=== PATIENT | male | born 1940 | race Caucasian/White ===

== ENCOUNTER 2018-11-07 09:33 | Inpatient (IN) ==
[2018-11-07] MEDS ORDERED: TRAMADOL HCL 50 MG TABLET PO STA (09:59)
[2018-11-07] MEDS ORDERED: SODIUM CHLORIDE 0.9% 500 ML IV SCH (10:00)
[2018-11-07 10:15] LABS: Basophils # (auto) 0.01 K/uL (0-0.2); Basophils % (auto) 0.2 %; Eosinophils # (auto) 0.07 K/uL (0-0.5); Eosinophils % (auto) 1.1 %; Hematocrit (blood only) 40.4 % (42-52); Hemoglobin 14.3 g/dL (14.0-18.0); Immature Granulocytes # (auto) 0.01 K/uL (0.00-0.02); Immature Granulocytes % (auto) 0.2 %; Lymphocytes # (auto) 1.79 K/uL (1.2-3.4); Lymphocytes % (auto) 28.5 %; Mean Corpuscular Hemoglobin 30.7 pg (25-34); Mean Corpuscular Hgb Conc 35.4 g/dL (32-36); Mean Corpuscular Volume 86.7 fL (80-100); Mean Platelet Volume 10.9 fL (7.4-10.4); Monocytes # (auto) 0.73 K/uL (0.11-0.59); Monocytes % (auto) 11.6 %; Neutrophils # (auto) 3.67 K/uL (1.4-6.5); Neutrophils % (auto) 58.4 %; Platelet Count 175 K/uL (130-400); RDW Coefficient of Variation 12.6 % (11.5-14.5); RDW Standard Deviation 40.1 fL (36.4-46.3); Red Blood Count 4.66 M/uL (4.7-6.1); White Blood Count 6.28 K/uL (4.8-10.8)
[2018-11-07 10:32] LABS: Alanine Aminotransferase 21 U/L (12-78); Albumin Level 3.6 gm/dl (3.4-5.0); Aspartate Aminotransferase 19 U/L (15-37); BUN Creatinine Ratio 12.3 (10-20); Blood Urea Nitrogen 10 mg/dl (7-18); Calcium 8.8 mg/dl (8.5-10.1); Carbon Dioxide 29 mmol/L (21-32); Chloride 96 mmol/L (98-107); Est GFR (Non-African American) 84.5; Glucose 113 mg/dl (70-99); Potassium 4.1 mmol/L (3.5-5.1); Sodium 130 mmol/L (136-145)
[2018-11-07 10:35] LABS: iSTAT Creatinine 0.9 mg/dl (0.6-1.3); iSTAT Hemoglobin 14.6 g/dl (14.0-18.0); iSTAT Ionized Calcium 1.21 mmol/l (1.12-1.32); iSTAT Potassium 4.2 mEq/L (3.3-5.0)
[2018-11-07 10:42] LABS: Alkaline Phosphatase 64 U/L (45-117); Bilirubin,Total 0.6 mg/dl (0.2-1); Creatine Kinase 101 U/L (39-308); Globulin 3.6 gm/dl (2.5-4.0); Total Protein 7.2 gm/dl (6.4-8.2); Troponin I < 0.015 ng/ml (0-0.045)
[2018-11-07] MEDS ORDERED: IOVERSOL 100ml IV PRN (10:43)
--- NOTE | 2018-11-07 11:00 | CT Scan Report ---
CT SCAN OF THE BRAIN WITHOUT IV CONTRAST CLINICAL HISTORY: Fall. Change in mental status. COMPARISON STUDY: CT of the brain dated 06/10/2018. TECHNIQUE: Unenhanced axial CT scan of the brain is performed from the vertex to the skull base. A do se lowering technique was utilized adhering to the principles of ALARA. FINDINGS: Brain parenchyma: There are age-related involutional changes noting moderate subcortical and periven tricular microangiopathic change. There is no hemorrhage, mass effect, or evidence of acute territori al ischemia by CT criteria. Lyn-white matter differentiation is preserved. No extra-axial fluid flaca ection is seen. Ventricles, sulci, cisterns: Prominent secondary to involutional change. Intracranial vasculature: There is atherosclerotic calcification of the cavernous carotid arteries. Calvarium: The skeletal structures are osteopenic. No depressed calvarial fracture is seen. Sinuses and mastoids: The visualized paranasal sinuses are clear. The mastoid air cells are well pneu matized. Orbits: The bony orbits are grossly intact. There are bilateral ocular lens implants. IMPRESSION: There is no hemorrhage, mass effect, or evidence of acute territorial ischemia by CT lis marie. Electronically signed by: Arnoldo Deng M.D. 11/07/2018 10:59 AM
--- NOTE | 2018-11-07 11:05 | CT Scan Report ---
CERVICAL SPINE CT CT DOSE: 1721.11 mGy.cm HISTORY: Neck pain. Pt c/o multiple falls TECHNIQUE: Multiaxial CT images of the cervical spine were performed and reformatted in the sagittal and coronal plane without the use of contrast. A dose lowering technique was utilized adhering to th e principles of ALARA. COMPARISON: None. FINDINGS: No fractures. No subluxation. Prevertebral soft tissues and the C1-C2 interval are intact. No pneumothorax. The left C3-C4 and right C4-C5 facets are fused. Moderate to severe degenerative dis c disease throughout the majority cervical spine. Straightening of the cervical spine. IMPRESSION: No fractures within the cervical spine. Electronically signed by: Dwight Soto M.D. 11/07/2018 11:03 AM
--- NOTE | 2018-11-07 11:16 | CT Scan Report ---
CT OF THE CHEST WITH IV CONTRAST CLINICAL HISTORY: Chest pain status post trauma COMPARISON STUDY: No previous studies for comparison. TECHNIQUE: Following the IV administration of 95 mL of Optiray-320, CT of the thorax was performed f rom the thoracic inlet to the lung bases. Images are reviewed in the axial, sagittal, and coronal moose corina. IV contrast was administered without complication. A dose lowering technique was utilized adher ing to the principles of ALARA. CT DOSE: FINDINGS: Thyroid: Imaged portions of the thyroid gland are normal in appearance. Thoracic aorta: The ascending thoracic aorta measures 37 mm. Pulmonary vasculature: The pulmonary trunk is normal in caliber. There are no central filling defects identified to suggest pulmonary embolus. Note that this examination was not protocoled for the evalu ation of pulmonary emboli. HEART: There are coronary artery calcifications. The heart is normal in size. There is no significant pericardial effusion. There are postsurgical changes of midline sternotomy. Lungs and pleural spaces: There are no pleural effusions. There is minor basilar atelectasis. There i s no focal pulmonary consolidation. There is no pneumothorax. Mediastinum: There is no evidence for a mediastinal hematoma. There is no pathologic anterior mediast inal adenopathy. There is a lobulated posterior mediastinal paraspinal mass measuring 7 cm transverse ly. This is centered on the T9 level. There is suspected epidural extension with probable spinal jeancarlos l narrowing. MRI is recommended in follow-up. Margie: There is no evidence of pathologic hilar adenopathy Axilla: There is no evidence of pathologic axillary lymphadenopathy Upper abdomen: Partially visualized upper abdominal viscera is within normal limits. Skeletal structures: There is an old T5 compression deformity. There is abnormal trabecular pattern o f the T9 vertebra at the level of the paraspinal mass. IMPRESSION: 1. No evidence of acute intrathoracic injury 2. 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 There is an abnormal trabecular pattern of the T9 vertebra, likely secondary to tumor involvement. There is suspected epidural extens ion with probable spinal canal narrowing. An MRI should be considered in follow-up to evaluate for co rd compression. Electronically signed by: Deonte Guardado M.D. 11/07/2018 11:15 AM
--- NOTE | 2018-11-07 11:20 | CT Scan Report ---
THORACIC SPINE CT CT DOSE: HISTORY: Back pain. pt c/o multiple falls TECHNIQUE: Multiaxial CT images of the thoracic spine were performed and reformatted in the sagittal and coronal plane without the use of contrast. A dose lowering technique was utilized adhering to e principles of ALARA. COMPARISON: None. FINDINGS: Mild superior compression deformities at T4 and T5. These are technically age indeterminate but likely old given the lack of surrounding paravertebral edema. There is patchy sclerosis and part ial bony destruction within the T9 vertebral body which extends into the pedicles. There is a large s urrounding paravertebral soft tissue masses at this level which extends into the neural foramen at T9 -T10 and appears to demonstrate epidural involvement with severe central canal narrowing. This mass m easures up to 2.2 cm in thickness and extends into the left extrapleural space from the T7-T11 levels . This is consistent with a minute neoplastic process and may represent lymphoma or plasmacytoma. No pathologic fracture identified. No subluxation. IMPRESSION: 1. Mild superior endplate compression deformities at T4 and T5 which are technically age indeterminat e but likely old. 2. No definite acute fractures within the thoracic spine. 3. Large paravertebral soft tissue mass which involves and surrounds the T9 vertebral body. This exte nds into the bilateral T9-T10 neural foramen and likely demonstrates epidural involvement with severe central canal narrowing. This also extends into the left paravertebral/extrapleural space from the T 7-T11 levels. This is consistent with a neoplastic process and may represent a lymphoma or plasmacyto ma. Electronically signed by: Dwight Soto M.D. 11/07/2018 11:18 AM
[2018-11-07] MEDS ORDERED: DEXAMETHASONE **PF** INJ 10 MG/ML VIAL IV ONE (11:25)
--- NOTE | 2018-11-07 11:25 | CT Scan Report ---
CT SCAN OF THE ABDOMEN AND PELVIS WITH IV CONTRAST; CT SCAN OF THE LUMBAR SPINE WITHOUT IV CONTRAST CLINICAL HISTORY: Falls. Generalized abdominal pain. COMPARISON STUDY: Abdominal CT dated 07/08/2015. TECHNIQUE: Following the IV administration of 95 cc of Optiray 320, CT scan of the abdomen and pelvi s is performed from the lung bases to the proximal femora. Additionally, unenhanced CT scan of the alexis mbar spine is performed from the lower thoracic spine to the sacrum. Images for both examinations are reviewed in the axial, sagittal, and coronal planes. IV contrast was administered without complicati on. A dose lowering technique was utilized adhering to the principles of ALARA. FINDINGS: Lung bases: The patient is status post midline sternotomy. The heart is enlarged and without pericard ial effusion. The coronary arteries are densely calcified. There is a small hiatal hernia. There is b ibasilar scarring/atelectasis. No airspace consolidation is seen typical for pneumonia. There is no p leural effusion. Abnormal paravertebral and pleural/subpleural soft tissue is partially visualized at both lung bases adjacent to the T9 vertebral body. This measures up to 2 cm in thickness, and encroa ches upon the neural foramina. Epidural extension is not excluded. Liver: The contrast-enhanced liver is normal in size, contour, and attenuation. There is no intrahepa tic biliary ductal dilatation. The hepatic veins and portal veins are patent. Gallbladder: Unremarkable. Spleen: Normal in size and attenuation. Pancreas: Moderately atrophic and grossly unremarkable. Adrenal glands: Unremarkable. Kidneys: The contrast enhanced kidneys demonstrate cortical atrophy and are without hydronephrosis. T he kidneys enhance symmetrically. There is a retroaortic left renal vein. Abdominal vasculature: The abdominal aorta is normal in course and caliber noting moderate atheroscle rotic calcification. Bowel: There is advanced sigmoid diverticulosis without CT evidence of acute diverticulitis. No bowel obstruction is seen. There is moderate colonic fecal retention. The appendix is not identified and reported surgically absent. Peritoneum: There is no intraperitoneal free air or abdominal ascites. Lymphadenopathy: None. Pelvic viscera: The prostate gland is mildly enlarged and heterogeneous. The bladder is normal as vis ualized. There are small fat-containing inguinal hernias. Skeletal structures: The skeletal structures are osteopenic. See below for dedicated discussion of th e lumbar spine. There are healed left-sided rib fractures. No acute fracture is seen. A permeative de structive lesion is partially visualized in the body of T9. No additional Lytic or blastic lesions ar e identified. LUMBAR SPINE: Vertebral body height and alignment are maintained throughout the lumbar spine. There i s straightening of the lumbar lordosis. Anterior and lateral marginal osteophytes are seen throughout . The transverse and spinous processes are intact. There is no evidence of spondylolysis. There is ad vanced disc space narrowing with associated endplate sclerosis at L3-L4 and L4-L5. Advanced disc spac e narrowing is also seen at L2-L3. Moderate narrowing is present at L1-L2. There are posterior disc o steophyte complexes at all lumbar levels. There is no evidence of large disc herniation or high-grade central canal stenosis. The paraspinous soft tissues are within normal limits noting fatty atrophy o f the paraspinous musculature. IMPRESSION: 1. There is no evidence of solid organ injury in the hands or pelvis. 2. There is no evidence of fracture or malalignment involving the lumbar spine. 3. There is a permeative destructive lesion partially visualized involving the T9 vertebral body with associated abnormal paravertebral and pleural/subpleural soft tissue. This should be considered neop lasm until proven otherwise, possibly representing lymphoma or plasmacytoma. See report of CT scan of the thoracic spine performed concurrently for detailed thoracic spinal findings. 4. No additional destructive bony lesions are clearly identified. 5. Advanced sigmoid diverticulosis without CT evidence of acute diverticulitis. 6. Additional findings as above. Electronically signed by: Arnoldo Deng M.D. 11/07/2018 11:24 AM
[2018-11-07 11:46] LABS: Prostate Specific Antigen 2.12 ng/ml (0-4)
[2018-11-07 12:02] LABS: Appearance Urine Clear (Clear); Bacteria Urine Automated Negative (Negative); Bilirubin Urine Negative (Negative); Blood Urine 1+ (Negative); Color Urine Yellow; Epithelial Cell Urine Auto 0-5 /lpf (0-5); Glucose Urine UA Negative (Negative); Ketones Urine Negative (Negative); Leukocyte Esterase Urine Negative (Negative); Nitrite Urine Negative (Negative); Protein Urine Negative (Negative); Specific Gravity Urine 1.033 (1.000-1.030); Urobilinogen Urine Negative (Negative); WBC Urine Automated 0 /hpf (0-5)
--- NOTE | 2018-11-07 13:21 | History & Physical Report ---
Date of Service November 07, 2018 Assessment & Plan (1) Vertebral compression fracture: Admit to inpatient at PCU telemetry Vital signs every 4 hours Pain management Follow CBC CMP BMP Consult heme/ONC for lesion at T9 and paravertebral and epidural mass DVT prophylaxis Lovenox 40 mg subcu daily Full code Present on Admission?: Yes (2) Congestive heart failure: Patient has elevated BNP of 497 and some fatigue pitting edema of bilateral lower extremities. Started on gentle dose of Lasix 10 mg IV daily MRI findings of the thoracal spine significant for lytic bony destructive mass involving the T9 vertebral body. Large paravertebral and epidural component of the mass as above results in severe central canal stenosis with severe bilateral foraminal narrowing T8 and T9 and T9 and T10. Primary differential consideration is plasmacytoma with lymphoma. Patient also has 25% anterior endplate compression deformity at L5 appears to be subacute or chronic with chronic T4 compression deformity. Biopsy of the lesion is definitely needed. Will discuss with hematology oncology further options of diagnosis and treatment. Replenish potassium as needed Monitor electrolytes Monitor in and out And daily weight Present on Admission?: Yes (3) Paraspinal mass: As above Present on Admission?: Yes (4) Bradycardia: Patient has bradycardia to 40s with a nonspecific intraventricular conduction block. 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 Consulted cardiology Echocardiogram pending Present on Admission?: Yes History of Present Illness Chief Complaint: Pleurisy Primary Care Provider: Enrique Abdalla plateletsPatient is a 77 years old male with past medical history of coronary artery disease, sinusitis, hypertension, CABG, history of MIs presents to the emergency room with a complaint of back pain that is radiating to his abdomen and it is located mostly under bilateral ribs. She reports weight loss of approximately 25 pounds in 1 year. Patient said it was not intentional and it was related to decreased appetite. Patient increasingly feels more weakness all over his body and reports frequent falls. Patient said he had frequent falls in the past several weeks he did not hit his head no he lost consciousness. Patient said that his lower extremities are swelling up in the past several days and he does not know why. He is taking all of his medicine as prescribed. 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 Patient said in 2008 he had a last CA (lasted of 3) and at that time he was reporting abdominal pain and subsequently had surgery done in which per patient was not found any cause. His first CA happened in 1992. Labs are reviewed: White blood cell 6.28, hemoglobin 14.3 hematocrit 40.4, platelets 175. Sodium 130, potassium 4.1, chloride 96, anion gap 5, creatinine 0.81, GFR 84.5, AST 19, ALT 21, alkaline phosphatase 64, troponin 0 0.015, BNP 497, Albumin 3.6, PSA 2.12, free PSA 0.45., Urine 1+ blood 10-30 red blood cells HEAD: No headache, dizziness, or head injury. For nitrates, negative for leukocyte esterase negative for viable cells. CT abdomen and pelvis no evidence of solid organ injury. No evidence of fracture or malalignment involving the lumbar spine. There is a permeative obstructive lesion partially visualized involving T9 vertebral body with associated abnormal paravertebral and pleural/subpleural soft tissue. This should be considered neoplasm until proven otherwise. Possibly representing lymphoma or plasmacytoma. No additional obstructive bony lesion are clearly identified. Advanced sigmoid diverticulosis without CT evidence of acute diverticulitis. Kidneys the contrast enhanced kidneys demonstrate cortical atrophy and are without hydronephrosis. The kidneys enhance symmetrically. There is a retroaortic left renal vein. Thoracic CT spine: Mild. Endplate compressive deformity at T4 and T5 which technically age indeterminant but likely old. No definite acute fracture within the thoracic spine. Large paravertebral soft tissue mass which involved and surrounds 3 9 vertebral body. This extends into the bilateral T9 and T10 neural foramen and likely demonstrate epidural involvement with severe central canal narrowing. This also extends into the left paravertebral extrapleural space from T7-T11 level. This is consistent with a neoplastic process and may represent lymphoma or plasmacytoma. Lumbar CT -see abdomen pelvis. Head CT there is no hemorrhage, mass affect or evidence of acute territorial ischemia by CT criteria. Chest CT: No evidence of acute intrathoracic injury. Bilateral posterior pars spinal mass centered on the T9 vertebra. There is an normal trabecular pattern of the T9 vertebra, likely due to tumor involvement. There is suspected epidural extension with probably spinal canal narrowing. MRI should be considered in follow-up to evaluate further cord compression. Allergies Allergy/AdvReac Type Severity Reaction Status Date / Time bee venom protein (honey bee) Allergy Intermediate SWELLING Unverified 11/07/18 10:42 Home Medications Home Medications Medication Instructions Recorded Confirmed Type aspirin 81 mg PO QPM 06/10/18 11/07/18 History cholecalciferol (vitamin D3) 1,000 unit PO QAM 06/10/18 11/07/18 History [Vitamin D3] clopidogrel 75 mg PO QAM 06/10/18 11/07/18 History cyanocobalamin (vitamin B-12) 500 mcg PO QAM 06/10/18 11/07/18 History [Vitamin B-12] donepezil 5 mg PO QAM 06/10/18 11/07/18 History levothyroxine 25 mcg PO QAM 06/10/18 11/07/18 History multivitamin 1 tab PO QAM 06/10/18 11/07/18 History omega 6-rfa-[id number]-fish oil [Fish Oil] 1 cap PO QAM 06/10/18 11/07/18 History rosuvastatin 10 mg PO QPM 06/10/18 11/07/18 History Past Med/Surg History Medical History Heart disease (Chronic) Dehydration (Acute) Orthostatic hypotension (Acute) Sinusitis (Acute) Surgical History Hx of appendectomy (Resolved) Family History Other Family history non-contributory Social History Preferred Language: Belarusian Communication Ability: Effective Director Transportation Required: No Beliefs That Will Affect Care: None marital status: Current Living Situation: Spouse current occupational status: retired Other Information That Helps Us Care for You: No Feels Safe at Home: Yes Safety Concerns: Feels Safe At This Time Smoking Status: Former smoker Do You Dip or Chew Tobacco: No ; Second Hand Exposure: No ; Tobacco Cessation Education Requested by Patient: No Hx Alcohol Use: No Hx Substance Use: No Review of Systems Review of Systems: All systems reviewed & are unremarkable except as noted in HPI & below Physical Exam Constitutional: WD/WN, vitals as above well developed, + ill appearing and + frail appearing Eyes: PERRL, conjunctivae normal, anicteric sclerae ENMT: external ear and nose normal, oropharynx normal Neck: trachea midline, no thyromegaly Respiratory: normal respiratory effort, lungs clear to auscultation Cardiovascular: Heart Sounds: normal S1 and normal S2 Palpation: normal PMI and + palpable S3 Vessels: + JVD Lower extremity bilateral 2+ pitting edema up to ankles Chest (Breasts): Additional Comments: Sternal scar from CABG Gastrointestinal (Abdomen): normal bowel sounds, soft, nontender, no hepatosplenomegaly Musculoskeletal: no cyanosis or clubbing, extremities motor strength 5/5 Skin: no rashes, warm and dry Neurologic: patellar DTR's 2+ bilat, sensation intact Psychiatric: A+Ox3, euthymic affect Genitourinary: no testicular masses, no penis abnormality Lymphatic: no cervical or axillary lymphadenopathy Results & Data Vital Signs (Past 12 Hours) Vital Signs Temp Pulse Pulse Resp BP BP Pulse Ox 11/07/18 12:40 52 L 12 97 11/07/18 12:30 58 L 23 160/76 H 95 11/07/18 12:20 53 L 15 96 11/07/18 12:10 55 L 18 97 11/07/18 12:00 65 17 166/84 H 96 11/07/18 11:52 65 14 96 11/07/18 11:50 67 23 192/91 H 95 11/07/18 11:49 71 21 200/96 H 95 11/07/18 11:40 65 16 11/07/18 11:30 61 14 11/07/18 11:20 64 18 11/07/18 11:10 65 7 L 11/07/18 11:00 66 18 11/07/18 10:56 75 21 11/07/18 10:30 48 L 17 96 11/07/18 10:22 50 L 16 96 11/07/18 10:18 50 L 14 146/74 H 97 11/07/18 10:17 53 L 16 146/74 H 96 11/07/18 10:16 96 11/07/18 09:41 36.6 C 64 20 138/83 98 Code Status & VTE Plan Code Status Full code VTE Prophylaxis Plan VTE Prophylaxis will be ordered: Yes PG Care Time/CCT Total # of Minutes Spent Total Time Spent with Patient: Total time spent is greater than 50% in coordination of care (as documented) at patient's floor/unit and/or counseling patient:
[2018-11-07] MEDS ORDERED: ZOLPIDEM TARTRATE 5 MG TAB PO PRN (15:30)
[2018-11-07] MEDS ORDERED: ALUMINUM/MAGNESIUM SUSP 30 ML UDC PO PRN (15:30)
[2018-11-07] MEDS ORDERED: MAGNESIUM HYDROXIDE SUSP 30 ML UDC PO PRN (15:30)
--- NOTE | 2018-11-07 16:32 | Emergency Department Note ---
Entered by Santino Mitchell acting as a scribe for Levy Hodges MD History of Present Illness General Chief complaint: Fall Stated complaint: SPASMS IN LEG AND BACK,PAIN IN RIB AREA,FALLS Time Seen by Provider: 11/07/18 09:45 Source: patient and family () History of Present Illness Onset (ago): week(s) 2 Location: right (flank) Pain Consistency: + constant Maximum Pain Intensity: 0 Exacerbated By: + movement Associated symptoms: + other (+abdominal pain; +intermittent back spasms; +feet swelling ) Treatments prior to arrival: other (Tylenol at 0800 (2) ) The patient is a 77 year old male who presents to the Emergency Room with complaints of constant right flank pain over the past two weeks. The patient notes he fell back in June which resulted in a right rib fracture. The patient notes he has had issues with his right flank ever since. The patient states he also fell a few times since June, with the latest fall episode being two weeks ago. The patient notes he tripped over a stone onto grass two weeks ago, but the patient notes nothing bothered him after the fall initially. However, the patient notes his right flank has worsened since. The of the patient notes the patient has had abdominal pain since the latest fall. She states they went to an acute care clinic, but the notes the doctor at the clinic told them there is nothing more to do except wait for the ribs to heal. The patient states he currently has pain with movement and when trying to get up or sit down. The patient notes he has been having trouble getting around. The patient also notes he has been experiencing intermittent back spasms. The of the patient notes the patient's feet have been swelling, but the patient notes he has been drinking a lot of water recently. The patient notes he took 2 Tylenol at 0800. The patient reports he has been on Plavix. Home Medications Home Medications Medication Instructions Recorded Confirmed Type aspirin 81 mg PO QPM 06/10/18 11/07/18 History cholecalciferol (vitamin D3) 1,000 unit PO QAM 06/10/18 11/07/18 History [Vitamin D3] clopidogrel 75 mg PO QAM 06/10/18 11/07/18 History cyanocobalamin (vitamin B-12) 500 mcg PO QAM 06/10/18 11/07/18 History [Vitamin B-12] donepezil 5 mg PO QAM 06/10/18 11/07/18 History levothyroxine 25 mcg PO QAM 06/10/18 11/07/18 History multivitamin 1 tab PO QAM 06/10/18 11/07/18 History omega 2-sfx-zxq-fish oil [Fish Oil] 1 cap PO QAM 06/10/18 11/07/18 History rosuvastatin 10 mg PO QPM 06/10/18 11/07/18 History Allergies Allergy/AdvReac Type Severity Reaction Status Date / Time bee venom protein (honey bee) Allergy Intermediate SWELLING Unverified 11/07/18 10:42 Past Med/Surg History Medical History Heart disease (Chronic) Dehydration (Acute) Orthostatic hypotension (Acute) Sinusitis (Acute) Surgical History Hx of appendectomy (Resolved) Family History Other Family history non-contributory Social History Preferred Language: Occitan Communication Ability: Effective 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 and A total of 10 systems reviewed and were otherwise negative Physical Exam Vital Signs Vital Signs - 24 hr 11/07/18 09:41 11/07/18 10:16 11/07/18 10:17 Temperature 36.6 C Temperature Source Oral Sepsis Recent Fever Within 48 Hours No Sepsis Action Taken by Nursing No Action Required Pulse Rate 64 Pulse Rate [Finger] 53 L Pulse Rate from SpO2 Sensor Respiratory Rate 20 16 Respiratory Effort / Characteristics Non-Labored Non-Labored Respiratory Depth Normal Normal Blood Pressure 138/83 Blood Pressure [Right Arm] 146/74 H Blood Pressure Mean 101 Blood Pressure Mean [Right Arm] 98 Pulse Oximetry 98 96 96 Oxygen Delivery Method Room Air Room Air Room Air 11/07/18 10:18 11/07/18 10:22 11/07/18 10:30 Temperature Temperature Source Sepsis Recent Fever Within 48 Hours Sepsis Action Taken by Nursing Pulse Rate 50 L 50 L 48 L Pulse Rate [Finger] Pulse Rate from SpO2 Sensor 50 L 50 L 51 L Respiratory Rate 14 16 17 Respiratory Effort / Characteristics Respiratory Depth Blood Pressure 146/74 H Blood Pressure [Right Arm] Blood Pressure Mean 98 Blood Pressure Mean [Right Arm] Pulse Oximetry 97 96 96 Oxygen Delivery Method 11/07/18 10:56 11/07/18 11:00 11/07/18 11:10 Temperature Temperature Source Sepsis Recent Fever Within 48 Hours Sepsis Action Taken by Nursing Pulse Rate 75 66 65 Pulse Rate [Finger] Pulse Rate from SpO2 Sensor Respiratory Rate 21 18 7 L Respiratory Effort / Characteristics Respiratory Depth Blood Pressure Blood Pressure [Right Arm] Blood Pressure Mean Blood Pressure Mean [Right Arm] Pulse Oximetry Oxygen Delivery Method 11/07/18 11:20 11/07/18 11:30 11/07/18 11:40 Temperature Temperature Source Sepsis Recent Fever Within 48 Hours Sepsis Action Taken by Nursing Pulse Rate 64 61 65 Pulse Rate [Finger] Pulse Rate from SpO2 Sensor Respiratory Rate 18 14 16 Respiratory Effort / Characteristics Respiratory Depth Blood Pressure Blood Pressure [Right Arm] Blood Pressure Mean Blood Pressure Mean [Right Arm] Pulse Oximetry Oxygen Delivery Method 11/07/18 11:49 11/07/18 11:50 11/07/18 11:52 Temperature Temperature Source Sepsis Recent Fever Within 48 Hours Sepsis Action Taken by Nursing Pulse Rate 71 67 65 Pulse Rate [Finger] Pulse Rate from SpO2 Sensor 67 68 65 Respiratory Rate 21 23 14 Respiratory Effort / Characteristics Respiratory Depth Blood Pressure 200/96 H 192/91 H Blood Pressure [Right Arm] Blood Pressure Mean 130 124 Blood Pressure Mean [Right Arm] Pulse Oximetry 95 95 96 Oxygen Delivery Method 11/07/18 12:00 11/07/18 12:10 11/07/18 12:20 Temperature Temperature Source Sepsis Recent Fever Within 48 Hours Sepsis Action Taken by Nursing Pulse Rate 65 55 L 53 L Pulse Rate [Finger] Pulse Rate from SpO2 Sensor 64 55 L 54 L Respiratory Rate 17 18 15 Respiratory Effort / Characteristics Respiratory Depth Blood Pressure 166/84 H Blood Pressure [Right Arm] Blood Pressure Mean 111 Blood Pressure Mean [Right Arm] Pulse Oximetry 96 97 96 Oxygen Delivery Method 11/07/18 12:30 11/07/18 12:40 Temperature Temperature Source Sepsis Recent Fever Within 48 Hours Sepsis Action Taken by Nursing Pulse Rate 58 L 52 L Pulse Rate [Finger] Pulse Rate from SpO2 Sensor 55 L 52 L Respiratory Rate 23 12 Respiratory Effort / Characteristics Respiratory Depth Blood Pressure 160/76 H Blood Pressure [Right Arm] Blood Pressure Mean 104 Blood Pressure Mean [Right Arm] Pulse Oximetry 95 97 Oxygen Delivery Method GENERAL: Awake, alert, appears mildly confused, unable to verbalize thoughts HENT: Normocephalic, atraumatic. Oropharynx unremarkable. EYES: Normal conjunctiva. Sclera non-icteric. NECK: Supple. No nuchal rigidity. FROM. No JVD. RESPIRATORY: Clear to auscultation. CARDIAC: Regular rate, normal rhythm. Extremities warm and well perfused. Pulses equal. ABDOMEN: Soft, tender bilaterally to RUQ and LUQ. No tenderness to palpation. No rebound or guarding. No masses. RECTAL: Deferred. MUSCULOSKELETAL: Chest examination reveals no tenderness. The back is symmetrical on inspection without obvious abnormality. There is no CVA tenderness to palpation. No joint edema. Experiencing spasms on exam. LOWER EXTREMITIES: Calves are equal size bilaterally and non-tender. No edema. No discoloration. NEURO: Normal sensorium. No sensory or motor deficits noted. SKIN: No rash or jaundice noted. Course 0947: Past medical records reviewed. The patient was evaluated in room B4B. A complete history and physical exam was performed. 1133: I reviewed the patient's [facility]. Dr. Eckert will evaluate the patient for further management. Consultations Consultation #1: I reviewed the patient's case [facility]. Dr. Eckert will evaluate the patient for further management. Time: 11:33 Administered Medications Discontinued Medications Dexamethasone Sodium Phosphate (Decadron Pf) 10 mg IV NOW ONE Stop: 11/07/18 11:26 Last Admin: 11/07/18 12:21 Dose: 10 mg Documented by: [id number] Sodium Chloride (Nss) 500 mls @ 999 mls/hr IV .Q31M HILARY Stop: 11/07/18 10:30 Last Infusion: 11/07/18 10:44 Dose: 0 mls/hr Documented by: [id number] Admin: 11/07/18 10:10 Dose: 999 mls/hr Documented by: [id number] Ioversol (Optiray 320 100ml) 95 ml IV ONCE PRN PRN Reason: Interaction Checking Stop: 11/11/18 10:42 Last Admin: 11/07/18 10:43 Dose: 95 ml Documented by: [id number] Tramadol HCl (Ultram) 50 mg PO NOW STA Stop: 11/07/18 10:00 Last Admin: 11/07/18 10:10 Dose: 50 mg Documented by: [id number] Medical Decision Making Differential Diagnosis Differential diagnosis: Etiologies such as fracture, dislocation, intra-abdominal, pneumothorax, intrathoracic , intracranial, neurologic, as well as other traumatic pathologies were entertained. Medical Records Attestation: I reviewed the patient's medical records. Home Medications Current Medication List: was personally reviewed by me Laboratory Data Attestation: I reviewed the patient's lab results. Result diagrams: 11/07/18 10:06 11/07/18 10:06 Lab Results 11/07/18 11/07/18 11/07/18 Range/Units 10:06 10:06 10:06 WBC 6.28 (4.8-10.8) K/uL RBC 4.66 L (4.7-6.1) M/uL Hgb 14.3 (14.0-18.0) g/dL POC Hgb (14.0-18.0) g/dl Hct 40.4 L (42-52) % POC Hct (42-52) % MCV 86.7 (80-100) fL MCH 30.7 (25-34) pg MCHC 35.4 (32-36) g/dL RDW Std Deviation 40.1 (36.4-46.3) fL RDW Coeff of Christiane 12.6 (11.5-14.5) % Plt Count 175 (130-400) K/uL MPV 10.9 H (7.4-10.4) fL Immature Gran % (Auto) 0.2 % Neut % (Auto) 58.4 % Lymph % (Auto) 28.5 % [place] % (Auto) 11.6 % Eos % (Auto) 1.1 % Baso % (Auto) 0.2 % Immature Gran # (Auto) 0.01 (0.00-0.02) K/uL Neut # (Auto) 3.67 (1.4-6.5) K/uL Lymph # (Auto) 1.79 (1.2-3.4) K/uL [place] # (Auto) 0.73 H (0.11-0.59) K/uL Eos # (Auto) 0.07 (0-0.5) K/uL Baso # (Auto) 0.01 (0-0.2) K/uL POC Sodium (135-144) mEq/L Sodium 130 L (136-145) mmol/L POC Potassium (3.3-5.0) mEq/L Potassium 4.1 (3.5-5.1) mmol/L POC Chloride (101-112) mEq/L Chloride 96 L (98-107) mmol/L Carbon Dioxide 29 (21-32) mmol/L POC Total CO2 (24-31) mEq/l Anion Gap 5.0 (3-11) POC Anion Gap (16-25) mmol/L POC BUN (7-18) mg/dl BUN 10 (7-18) mg/dl Creatinine 0.81 (0.6-1.4) mg/dl POC Creatinine (0.6-1.3) mg/dl Est Cr Clr Drug Dosing Not Reportable Est GFR ( Amer) 98.0 Est GFR (Non-Af Amer) 84.5 BUN/Creatinine Ratio 12.3 (10-20) Glucose 113 H (70-99) mg/dl POC Glucose (other) (70-99) mg/dl Calcium 8.8 (8.5-10.1) mg/dl POC Ioniz Calcium Mike (1.12-1.32) mmol/l Total Bilirubin 0.6 (0.2-1) mg/dl AST 19 (15-37) U/L ALT 21 (12-78) U/L Alkaline Phosphatase 64 (45-117) U/L Total Creatine Kinase 101 (39-308) U/L Troponin I < 0.015 (0-0.045) ng/ml NT-Pro-B Natriuret Pep 497 (0-1800) pg/ml Total Protein 7.2 (6.4-8.2) gm/dl Albumin 3.6 (3.4-5.0) gm/dl Globulin 3.6 (2.5-4.0) gm/dl Albumin/Globulin Ratio 1.0 (0.9-2) Prostate Specific Ag (0-4) ng/ml Free PSA ng/ml % Free PSA % TSH 2.920 (0.300-4.500) uIu/ml Urine Color Urine Appearance (Clear) Urine pH (4.5-7.5) Ur Specific [place] (1.000-1.030) Urine Protein (Negative) Urine Glucose (UA) (Negative) Urine Ketones (Negative) Urine Blood (Negative) Urine Nitrite (Negative) Urine Bilirubin (Negative) Urine Urobilinogen (Negative) Ur Leukocyte Esterase (Negative) Urine WBC (Auto) (0-5) /hpf Urine RBC (Auto) (0-4) /hpf U Hyaline Cast (Auto) (0-5) /lpf U Epithel Cells (Auto) (0-5) /lpf Urine Bacteria (Auto) (Negative) 11/07/18 11/07/18 11/07/18 Range/Units 10:06 10:09 11:35 WBC (4.8-10.8) K/uL RBC (4.7-6.1) M/uL Hgb (14.0-18.0) g/dL POC Hgb 14.6 (14.0-18.0) g/dl Hct (42-52) % POC Hct 43 (42-52) % MCV (80-100) fL MCH (25-34) pg MCHC (32-36) g/dL RDW Std Deviation (36.4-46.3) fL RDW Coeff of Christiane (11.5-14.5) % Plt Count (130-400) K/uL MPV (7.4-10.4) fL Immature Gran % (Auto) % Neut % (Auto) % Lymph % (Auto) % [place] % (Auto) % Eos % (Auto) % Baso % (Auto) % Immature Gran # (Auto) (0.00-0.02) K/uL Neut # (Auto) (1.4-6.5) K/uL Lymph # (Auto) (1.2-3.4) K/uL [place] # (Auto) (0.11-0.59) K/uL Eos # (Auto) (0-0.5) K/uL Baso # (Auto) (0-0.2) K/uL POC Sodium 129 L (135-144) mEq/L Sodium (136-145) mmol/L POC Potassium 4.2 (3.3-5.0) mEq/L Potassium (3.5-5.1) mmol/L POC Chloride 92 L (101-112) mEq/L Chloride (98-107) mmol/L Carbon Dioxide (21-32) mmol/L POC Total CO2 25 (24-31) mEq/l Anion Gap (3-11) POC Anion Gap 17.0 (16-25) mmol/L POC BUN 9 (7-18) mg/dl BUN (7-18) mg/dl Creatinine (0.6-1.4) mg/dl POC Creatinine 0.9 (0.6-1.3) mg/dl Est Cr Clr Drug Dosing Est GFR ( Amer) Est GFR (Non-Af Amer) BUN/Creatinine Ratio (10-20) Glucose (70-99) mg/dl POC Glucose (other) 115 H (70-99) mg/dl Calcium (8.5-10.1) mg/dl POC Ioniz Calcium Mike 1.21 (1.12-1.32) mmol/l Total Bilirubin (0.2-1) mg/dl AST (15-37) U/L ALT (12-78) U/L Alkaline Phosphatase (45-117) U/L Total Creatine Kinase (39-308) U/L Troponin I (0-0.045) ng/ml NT-Pro-B Natriuret Pep (0-1800) pg/ml Total Protein (6.4-8.2) gm/dl Albumin (3.4-5.0) gm/dl Globulin (2.5-4.0) gm/dl Albumin/Globulin Ratio (0.9-2) Prostate Specific Ag 2.120 (0-4) ng/ml Free PSA 0.45 ng/ml % Free PSA % TSH (0.300-4.500) uIu/ml Urine Color Yellow Urine Appearance Clear (Clear) Urine pH 8.0 H (4.5-7.5) Ur Specific [place] 1.033 H (1.000-1.030) Urine Protein Negative (Negative) Urine Glucose (UA) Negative (Negative) Urine Ketones Negative (Negative) Urine Blood 1+ H (Negative) Urine Nitrite Negative (Negative) Urine Bilirubin Negative (Negative) Urine Urobilinogen Negative (Negative) Ur Leukocyte Esterase Negative (Negative) Urine WBC (Auto) 0 (0-5) /hpf Urine RBC (Auto) 10-30 H (0-4) /hpf U Hyaline Cast (Auto) 1-5 (0-5) /lpf U Epithel Cells (Auto) 0-5 (0-5) /lpf Urine Bacteria (Auto) Negative (Negative) Imaging Data Radiologist's Impression: Radiology results as stated below per my review and the radiologist's interpretation: CT SCAN OF THE ABDOMEN AND PELVIS WITH IV CONTRAST; CT SCAN OF THE LUMBAR SPINE WITHOUT IV CONTRAST CLINICAL HISTORY: Falls. Generalized abdominal pain. COMPARISON STUDY: Abdominal CT dated 07/08/2015. TECHNIQUE: Following the IV administration of 95 cc of Optiray 320, CT scan of the abdomen and pelvis is performed from the lung bases to the proximal femora. Additionally, unenhanced CT scan of the lumbar spine is performed from the lower thoracic spine to the sacrum. Images for both examinations are reviewed in the axial, sagittal, and coronal planes. IV contrast was administered without complication. A dose lowering technique was utilized adhering to the principles of ALARA. FINDINGS: Lung bases: The patient is status post midline sternotomy. The heart is enlarged and without pericardial effusion. The coronary arteries are densely calcified. There is a small hiatal hernia. There is bibasilar scarring/atelectasis. No airspace consolidation is seen typical for pneumonia. There is no pleural effusion. Abnormal paravertebral and pleural/subpleural soft tissue is partially visualized at both lung bases adjacent to the T9 vertebral body. This measures up to 2 cm in thickness, and encroaches upon the neural foramina. Epidural extension is not excluded. Liver: The contrast-enhanced liver is normal in size, contour, and attenuation. There is no intrahepatic biliary ductal dilatation. The hepatic veins and portal veins are patent. Gallbladder: Unremarkable. Spleen: Normal in size and attenuation. Pancreas: Moderately atrophic and grossly unremarkable. Adrenal glands: Unremarkable. Kidneys: The contrast enhanced kidneys demonstrate cortical atrophy and are without hydronephrosis. The kidneys enhance symmetrically. There is a retroao rtic left renal vein. Abdominal vasculature: The abdominal aorta is normal in course and caliber no ting moderate atherosclerotic calcification. Bowel: There is advanced sigmoid diverticulosis without CT evidence of acute diverticulitis. No bowel obstruction is seen. There is moderate colonic fecal retention. The appendix is not identified and reported surgically absent. Peritoneum: There is no intraperitoneal free air or abdominal ascites. Lymphadenopathy: None. Pelvic viscera: The prostate gland is mildly enlarged and heterogeneous. The bladder is normal as visualized. There are small fat-containing inguinal hernias. Skeletal structures: The skeletal structures are osteopenic. See below for dedicated discussion of the lumbar spine. There are healed left-sided rib fractures. No acute fracture is seen. A permeative destructive lesion is partially visualized in the body of T9. No additional Lytic or blastic lesions are identified. LUMBAR SPINE: Vertebral body height and alignment are maintained throughout the lumbar spine. There is straightening of the lumbar lordosis. Anterior and lateral marginal osteophytes are seen throughout. The transverse and spinous processes are intact. There is no evidence of spondylolysis. There is advanced disc space narrowing with associated endplate sclerosis at L3-L4 and L4-L5. Advanced disc space narrowing is also seen at L2-L3. Moderate narrowing is present at L1-L2. There are posterior disc osteophyte complexes at all lumbar levels. There is no evidence of large disc herniation or high-grade central canal stenosis. The paraspinous soft tissues are within normal limits noting fatty atrophy of the paraspinous musculature. IMPRESSION: 1. There is no evidence of solid organ injury in the hands or pelvis. 2. There is no evidence of fracture or malalignment involving the lumbar spine. 3. There is a permeative destructive lesion partially visualized involving the T9 vertebral body with associated abnormal paravertebral and pleural/subpleural soft tissue. This should be considered neoplasm until proven otherwise, possibly representing lymphoma or plasmacytoma. See report of CT scan of the thoracic spine performed concurrently for detailed thoracic spinal findings. 4. No additional destructive bony lesions are clearly identified. 5. Advanced sigmoid diverticulosis without CT evidence of acute diverticulitis. 6. Additional findings as above. Electronically signed by: Arnoldo Deng M.D. 11/07/2018 11:[address] OF THE CHEST WITH IV CONTRAST CLINICAL HISTORY: Chest pain status post trauma COMPARISON STUDY: No previous studies for comparison. TECHNIQUE: Following the IV administration of 95 mL of Optiray-320, CT of the thorax was performed from the thoracic inlet to the lung bases. Images are reviewed in the axial, sagittal, and coronal planes. IV contrast was admin istered without complication. A dose lowering technique was utilized adhering to the principles of ALARA. CT DOSE: FINDINGS: Thyroid: Imaged portions of the thyroid gland are normal in appearance. Thoracic aorta: The ascending thoracic aorta measures 37 mm. Pulmonary vasculature: The pulmonary trunk is normal in caliber. There are no central filling defects identified to suggest pulmonary embolus. Note that this examination was not protocoled for the evaluation of pulmonary emboli. HEART: There are coronary artery calcifications. The heart is normal in size. There is no significant pericardial effusion. There are postsurgical changes of midline sternotomy. Lungs and pleural spaces: There are no pleural effusions. There is minor basilar atelectasis. There is no focal pulmonary consolidation. There is no pneumothorax. Mediastinum: There is no evidence for a mediastinal hematoma. There is no pathologic anterior mediastinal adenopathy. There is a lobulated posterior mediastinal paraspinal mass measuring 7 cm transversely. This is centered on the T9 level. There is suspected epidural extension with probable spinal canal narrowing. MRI is recommended in follow-up. Margie: There is no evidence of pathologic hilar adenopathy Axilla: There is no evidence of pathologic axillary lymphadenopathy Upper abdomen: Partially visualized upper abdominal viscera is within normal limits. Skeletal structures: There is an old T5 compression deformity. There is abnormal trabecular pattern of the T9 vertebra at the level of the paraspinal mass. IMPRESSION: 1. No evidence of acute intrathoracic injury 2. 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 There is an abnormal trabecular pattern of the T9 vertebra, likely secondary to tumor involvement. There is suspected epidural extension with probable spinal canal narrowing. An MRI should be considered in follow-up to evaluate for cord compression. Electronically signed by: Deonte Guardado M.D. 11/07/2018 11:[address] SCAN OF THE BRAIN WITHOUT IV CONTRAST CLINICAL HISTORY: Fall. Change in mental status. COMPARISON STUDY: CT of the brain dated 06/10/2018. TECHNIQUE: Unenhanced axial CT scan of the brain is performed from the vertex to the skull base. A dose lowering technique was utilized adhering to the principles of ALARA. FINDINGS: Brain parenchyma: There are age-related involutional changes noting moderate subcortical and periventricular microangiopathic change. There is no hemorrhage, mass effect, or evidence of acute territorial ischemia by CT criteria. Lyn- white matter differentiation is preserved. No extra-axial fluid collection is seen. Ventricles, sulci, cisterns: Prominent secondary to involutional change. Intracranial vasculature: There is atherosclerotic calcification of the cavernous carotid arteries. Calvarium: The skeletal structures are osteopenic. No depressed calvarial fracture is seen. Sinuses and mastoids: The visualized paranasal sinuses are clear. The mastoid air cells are well pneumatized. Orbits: The bony orbits are grossly intact. There are bilateral ocular lens implants. IMPRESSION: There is no hemorrhage, mass effect, or evidence of acute territorial ischemia by CT criteria. Electronically signed by: Arnoldo Deng M.D. 11/07/2018 10:[address] DOSE: HISTORY: Back pain. pt c/o multiple falls TECHNIQUE: Multiaxial CT images of the thoracic spine were performed and reformatted in the sagittal and coronal plane without the use of contrast. A dose lowering technique was utilized adhering to the principles of ALARA. COMPARISON: None. FINDINGS: Mild superior compression deformities at T4 and T5. These are technically age indeterminate but likely old given the lack of surrounding paravertebral edema. There is patchy sclerosis and partial bony destruction within the T9 vertebral body which extends into the pedicles. There is a large surrounding paravertebral soft tissue masses at this level which extends into the neural foramen at T9-T10 and appears to demonstrate epidural involvement with severe central canal narrowing. This mass measures up to 2.2 cm in thickness and extends into the left extrapleural space from the T7-T11 levels. This is consistent with a minute neoplastic process and may represent lymphoma or plasmacytoma. No pathologic fracture identified. No subluxation. IMPRESSION: 1. Mild superior endplate compression deformities at T4 and T5 which are technically age indeterminate but likely old. 2. No definite acute fractures within the thoracic spine. 3. Large paravertebral soft tissue mass which involves and surrounds the T9 vertebral body. This extends into the bilateral T9-T10 neural foramen and likely demonstrates epidural involvement with severe central canal narrowing. This also extends into the left paravertebral/extrapleural space from the T7-T11 levels. This is consistent with a neoplastic process and may represent a lymphoma or plasmacytoma. Electronically signed by: Dwight Soto M.D. 11/07/2018 11:[address] DOSE: 1721.11 mGy.cm HISTORY: Neck pain. Pt c/o multiple falls TECHNIQUE: Multiaxial CT images of the cervical spine were performed and reformatted in the sagittal and coronal plane without the use of contrast. A dose lowering technique was utilized adhering to the principles of ALARA. COMPARISON: None. FINDINGS: No fractures. No subluxation. Prevertebral soft tissues and the C1-C2 interval are intact. No pneumothorax. The left C3-C4 and right C4-C5 facets are fused. Moderate to severe degenerative disc disease throughout the majority cervical spine. Straightening of the cervical spine. IMPRESSION: No fractures within the cervical spine. Electronically signed by: Dwight Soto M.D. 11/07/2018 11:03 AM ECG Data Attestation: I personally reviewed and interpreted this ECG as follows: Indication: other (right flank pain ) Rate (beats per minute): 53 Rhythm: sinus bradycardia Findings: + other (intraventricular block, old inferior infarct ) and + 1st degree AV block; no ST depression and no ST elevation Blood Pressure Blood Pressure Findings: Elevated blood pressure Blood Pressure Disposition: further management by hospitalist MDM Narrative This is a 77-year-old male who presents emergency department complaining of bilateral rib pain. Due to the nature of the patient's complaint as well as his recent history he was sent for CAT scan of the head chest abdomen pelvis as well as spine. Patient's spine is concerning for a destructive lesion at the T9 area. Because of this I recommended that the patient be admitted to the hospitalist. I did discuss the case with the hospitalist service who agreed to admit the patient. Patient and family were in agreement with the treatment plan. Patient was also given tramadol for his pain. Patient was in agreement with the treatment plan. Impression & Plan Paraspinal mass, Vertebral compression fracture Discharge Plan Visit Data *Final* Discharge Date/Time: 11/07/18 13:08 Chief Complaint: Fall Stated Complaint: SPASMS IN LEG AND BACK,PAIN IN RIB AREA,FALLS ED Provider: Levy Hodges Problem: Paraspinal mass, Vertebral compression fracture Patient Disposition: Admitted As Inpatient Discharge Instructions Interventions: ED Discharge Assessment Last Done: 11/07/18 13:08 The scribe's documentation has been prepared under my direction and personally reviewed by me in its entirety. I confirm that the note above accurately reflects all work, treatment, procedures, and medical decision making performed by me.
[2018-11-07] MEDS: FUROSEMIDE 10 MG in SYRINGE 0 ML IV SCH (20:08)
[2018-11-07] MEDS: ROSUVASTATIN CALCIUM 10 MG TAB PO SCH (20:09)
--- NOTE | 2018-11-07 20:40 | Magnetic Resonance Report ---
MR thoracic spine wo con HISTORY: 77 years-old Male T9 lesion,jayla fractures t4, t5, t9-t11,t7-t10 acute mid back pain wit h compression deformities and T9 vertebral body mass. COMPARISON: CT the rectal lumbar spine, chest, abdomen and pelvis studies of same day. TECHNIQUE: Multiplanar multisequence MRI of the thoracic spine was obtained without the use of IV con trast. FINDINGS: The imaged posterior fossa structures appear unremarkable. Degenerative changes noted about the image d cervical and lumbar spine. 25% anterior endplate compression deformity of the T5 vertebral body wit h less than 20% superior and anterior endplate compression deformity at T4 are noted. No associated b one marrow edema at T4. There is minimal edema like signal about the superior endplate of T5. There i s mild multilevel disc space narrowing with spondylitic spurring and mostly moderate facet arthrosis throughout the thoracic spine. Posterior disc osteophyte complex formation is noted at T12-L1 which f lattens the ventral thecal sac without significant central canal or foraminal narrowing as seen on th e sagittal images alone. There is a permeative destructive mass with marrow replacement redemonstrated about the T9 vertebral body. There is slight superior endplate compression of less than 20% at this level. Large soft tissue mass surrounds the vertebral body and extends into the paravertebral, anterior, lateral and posterio r dural tissues. Overall this mass measures approximately 6.3 x 7.1 x 11.5 cm in AP, transverse and c ranial caudal dimensions with a mass extending from the T7-T11 levels within the paravertebral/subple ural space. The epidural involvement causes severe central canal stenosis at T8-T9 and T9-T10, AP dim ension of the thecal sac narrowed to 3.5 mm posterior to the T9 level. Severe bilateral foraminal harrison rowing at T8-T9 and T9-T10 with mass extending into the bilateral neuroforamina. No additional suspic ious bone lesions are identified. IMPRESSION: 1. 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 Large paravertebral and epidural component of the mass as above results in severe central canal stenosis with severe brandon ateral foraminal narrowing at T8-T9 and T9-T10. Primary differential consideration is a plasmacytoma with lymphoma also within the differential. 2. No additional suspicious bone lesions are identified. 3. 25% anterior endplate compression deformity at L5 appears to be subacute or chronic with chronic T 4 compression deformity. Correlate with clinical history. 4. No acute fracture or subluxation identified. The above report was generated using voice recognition software. It may contain grammatical, syntax o r spelling errors. Electronically signed by: José Pan M.D. 11/07/2018 8:37 PM
[2018-11-07] MEDS ORDERED: ASPIRIN 81 MG ECTAB PO SCH (21:00)
[2018-11-07] MEDS ORDERED: ENOXAPARIN INJ 40 MG/0.4 ML SYR SQ SCH (22:00)
[2018-11-08] MEDS: LEVOTHYROXINE SODIUM 25 MCG TABLET PO SCH (06:00)
[2018-11-08 07:33] LABS: Hematocrit (blood only) 40.2 % (42-52); Hemoglobin 14.4 g/dL (14.0-18.0); Immature Granulocytes # (auto) 0.03 K/uL (0.00-0.02); Immature Granulocytes % (auto) 0.3 %; Lymphocytes # (auto) 2.09 K/uL (1.2-3.4); Lymphocytes % (auto) 18.2 %; Mean Corpuscular Hgb Conc 35.8 g/dL (32-36); Mean Corpuscular Volume 86.5 fL (80-100); Mean Platelet Volume 10.6 fL (7.4-10.4); Monocytes # (auto) 0.94 K/uL (0.11-0.59); Monocytes % (auto) 8.2 %; Neutrophils # (auto) 8.43 K/uL (1.4-6.5); Neutrophils % (auto) 73.3 %; Platelet Count 188 K/uL (130-400); RDW Coefficient of Variation 12.9 % (11.5-14.5); RDW Standard Deviation 40.9 fL (36.4-46.3); Red Blood Count 4.65 M/uL (4.7-6.1); White Blood Count 11.49 K/uL (4.8-10.8)
[2018-11-08 08:06] LABS: Albumin Level 3.5 gm/dl (3.4-5.0); BUN Creatinine Ratio 14.9 (10-20); Calcium 9.1 mg/dl (8.5-10.1); Creatinine Clr Calc Pharmacy 71.7 ml/min; Est GFR (African American) 94.3; Est GFR (Non-African American) 81.3; Potassium 3.9 mmol/L (3.5-5.1)
[2018-11-08 08:09] LABS: Albumin Globulin Ratio 0.9 (0.9-2); Bilirubin,Total 0.7 mg/dl (0.2-1); Globulin 3.7 gm/dl (2.5-4.0); Total Protein 7.2 gm/dl (6.4-8.2)
--- NOTE | 2018-11-08 08:42 | Cardiology Consultation ---
Date of Consultation November 08, 2018 Assessment & Plan (1) CAD (coronary artery disease): Has reported CABG many years ago and does have a sternotomy scar. Denies any angina but currently is confused. Would recommend continuation of aspirin 81 mg daily. No ischemic evaluation is recommended at this time. Echocardiogram has been ordered by the primary service and is currently pending. Continue statin therapy. Not on beta-socorro as he is having intermittent bradycardic episodes. Continue to follow with his outpatient gas dispatcher in the [place] area. Has infarct pattern on ECG. (2) Hx of CABG: Plan as above. (3) Bradycardia: He does not appear to be symptomatic with his mild bradycardia. Bradycardia may be due to his home donepezil. If he has significant bradycardia would consider discontinuation of that medication but for mild bradycardia, the medication was not discontinued at this time. Would avoid other medications that could further lower his heart rate. (4) Hypertension: Blood pressure is mildly elevated. Will defer treatment to primary service. (5) Accelerated junctional rhythm: Brief episode of accelerated junctional rhythm versus SVT with heart rates near 120 bpm noted on telemetry. It was nonsustained. No specific treatment warranted at this time, especially with intermittent mild bradycardia. (6) Edema: No edema currently on exam. He appears euvolemic. His proBNP is not significantly elevated. He does not likely require long-standing diuretic therapy. It is not clear what his LV systolic function is. It would not be surprising if he had some degree of diastolic or systolic CHF given his documented cardiac history, however he does not appear hypervolemic at this time. Disposition: Cardiology will sign off at this time. Follow-up with his primary gas dispatcher on discharge. Hematology/oncology consultation is pending. Please call with any other questions or concerns. Care discussed with primary hospitalist, Dr. Rock. Thank you for allowing me to participate in the care of your patient. Please call for any other questions or concerns. Sincerely, Ash Ellis M.D. History of Present Illness Reason for Consultation: Bradycardia Requesting Physician: Dr. Eckert Attending Physician: Dawood Rock, DO History of Present Illness Mr. Carias is a very pleasant 77-year-old gentleman with a history significant for dementia, CAD status post CABG (approximately 20 years ago in [place]), multiple myocardial infarctions, and hypertension who was admitted on 11/07/2018 due to reported back pain radiating to his abdomen. Unfortunately, he is a poor historian. He does not recall why he came to the hospital. In fact, he states that he lives at home with his father and states that his father is 75. He appears comfortable and denies any pain during our conversation. He denied any recent chest pain, shortness of breath, syncope, near syncope, palpitations, edema, or bleeding. He states that he follows with Dr. Hill for his cardiology needs, every 6 months. Cardiology consultation was requested due to bradycardia with heart rates in the 40s. He was also felt to have CHF on presentation by the primary service based on pitting edema of his lower extremities. He was given IV Lasix 10 mg. MRI of his thoracic spine was done due to abnormal CT scan. MRI demonstrated lytic bone destructive mass involving the T9 vertebral body, including a large paravertebral and epidural component with severe central canal stenosis and severe bilateral foraminal narrowing at T8-T9 and T9-T10, concerning for malignancy. Hematology/oncology consultation is pending. There is a reported weight loss of approximately 25 pounds in the last year according to the admitting note. His was called via telephone, however there was no answer. Review of systems: As above and otherwise unremarkable or unobtainable due to patient's memory. Past medical history: 1. CAD status post CABG many years ago 2. Multiple myocardial infarctions 3. Hypertension Family history: He denies premature CAD. Social history: He denies smoking. He denies alcohol. He states that he lives at home with his and father, although states that his father is younger than him. He reports 3 children. 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 He was unaccompanied for today's visit. Allergies Allergy/AdvReac Type Severity Reaction Status Date / Time bee venom protein (honey bee) Allergy Intermediate SWELLING Unverified 11/07/18 10:42 Home Medications Home Medications Medication Instructions Recorded Confirmed Type aspirin 81 mg PO QPM 06/10/18 11/07/18 History cholecalciferol (vitamin D3) 1,000 unit PO QAM 06/10/18 11/07/18 History [Vitamin D3] clopidogrel 75 mg PO QAM 06/10/18 11/07/18 History cyanocobalamin (vitamin B-12) 500 mcg PO QAM 06/10/18 11/07/18 History [Vitamin B-12] donepezil 5 mg PO QAM 06/10/18 11/07/18 History levothyroxine 25 mcg PO QAM 06/10/18 11/07/18 History multivitamin 1 tab PO QAM 06/10/18 11/07/18 History omega 1-zyx-drw-fish oil [Fish Oil] 1 cap PO QAM 06/10/18 11/07/18 History rosuvastatin 10 mg PO QPM 06/10/18 11/07/18 History Patient History Medical History Heart disease (Chronic) Dehydration (Acute) Orthostatic hypotension (Acute) Sinusitis (Acute) Surgical History Hx of appendectomy (Resolved) Family History Other Family history non-contributory Social History Preferred Language: Kyrgyz Communication Ability: Effective 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 Alert. He was not oriented to place, month, or year. HEENT: Anicteric sclera. Neck: No JVD. No hepatojugular reflux appreciated. No bruits. Normal carotid upstrokes bilaterally. Cardiac: PMI was nonpalpable. No ventricular heave. Regular with occasional ectopy. Normal S1-S2. 2/6 systolic murmur. No rubs or gallops. Pulmonary: Clear to auscultation bilaterally without wheezes, rales, or rhonchi. Abdomen: Soft, nontender, nondistended, with normoactive bowel sounds. No bruits noted. Extremities: 2+ radial pulses bilaterally. 2+ posterior tibialis pulses bilaterally. No edema or cyanosis. Psychiatric: Affect appears appropriate. Results & Data Vital Signs (Past 12 Hours) Vital Signs Temp Pulse Pulse Resp BP Pulse Ox 11/08/18 06:48 36.7 C 69 19 162/76 H 97 11/08/18 01:26 66 11/07/18 23:21 36.4 C L 82 18 141/69 H 97 Laboratory Results Laboratory Results - last 24 hr 11/07/18 11/07/18 11/07/18 10:06 10:06 10:06 WBC 6.28 RBC 4.66 L Hgb 14.3 POC Hgb Hct 40.4 L POC Hct MCV 86.7 MCH 30.7 MCHC 35.4 RDW Std Deviation 40.1 RDW Coeff of Christiane 12.6 Plt Count 175 MPV 10.9 H Immature Gran % (Auto) 0.2 Neut % (Auto) 58.4 Lymph % (Auto) 28.5 Kent % (Auto) 11.6 Eos % (Auto) 1.1 Baso % (Auto) 0.2 Immature Gran # (Auto) 0.01 Neut # (Auto) 3.67 Lymph # (Auto) 1.79 Kent # (Auto) 0.73 H Eos # (Auto) 0.07 Baso # (Auto) 0.01 POC Sodium Sodium 130 L POC Potassium Potassium 4.1 POC Chloride Chloride 96 L Carbon Dioxide 29 POC Total CO2 Anion Gap 5.0 POC Anion Gap POC BUN BUN 10 Creatinine 0.81 POC Creatinine Est Cr Clr Drug Dosing Not Reportable Est GFR ( Amer) 98.0 Est GFR (Non-Af Amer) 84.5 BUN/Creatinine Ratio 12.3 Glucose 113 H POC Glucose (other) Calcium 8.8 POC Ioniz Calcium Mike Total Bilirubin 0.6 AST 19 ALT 21 Alkaline Phosphatase 64 Total Creatine Kinase 101 Troponin I < 0.015 NT-Pro-B Natriuret Pep 497 Total Protein 7.2 Albumin 3.6 Globulin 3.6 Albumin/Globulin Ratio 1.0 Prostate Specific Ag Free PSA % Free PSA TSH 2.920 Urine Color Urine Appearance Urine pH Ur Specific [place] Urine Protein Urine Glucose (UA) Urine Ketones Urine Blood Urine Nitrite Urine Bilirubin Urine Urobilinogen Ur Leukocyte Esterase Urine WBC (Auto) Urine RBC (Auto) U Hyaline Cast (Auto) U Epithel Cells (Auto) Urine Bacteria (Auto) 11/07/18 11/07/18 11/07/18 10:06 10:09 11:35 WBC RBC Hgb POC Hgb 14.6 Hct POC Hct 43 MCV MCH MCHC RDW Std Deviation RDW Coeff of Christiane Plt Count MPV Immature Gran % (Auto) Neut % (Auto) Lymph % (Auto) Kent % (Auto) Eos % (Auto) Baso % (Auto) Immature Gran # (Auto) Neut # (Auto) Lymph # (Auto) Kent # (Auto) Eos # (Auto) Baso # (Auto) POC Sodium 129 L Sodium POC Potassium 4.2 Potassium POC Chloride 92 L Chloride Carbon Dioxide POC Total CO2 25 Anion Gap POC Anion Gap 17.0 POC BUN 9 BUN Creatinine POC Creatinine 0.9 Est Cr Clr Drug Dosing Est GFR ( Amer) Est GFR (Non-Af Amer) BUN/Creatinine Ratio Glucose POC Glucose (other) 115 H Calcium POC Ioniz Calcium Mike 1.21 Total Bilirubin AST ALT Alkaline Phosphatase Total Creatine Kinase Troponin I NT-Pro-B Natriuret Pep Total Protein Albumin Globulin Albumin/Globulin Ratio Prostate Specific Ag 2.120 Free PSA 0.45 % Free PSA TSH Urine Color Yellow Urine Appearance Clear Urine pH 8.0 H Ur Specific [place] 1.033 H Urine Protein Negative Urine Glucose (UA) Negative Urine Ketones Negative Urine Blood 1+ H Urine Nitrite Negative Urine Bilirubin Negative Urine Urobilinogen Negative Ur Leukocyte Esterase Negative Urine WBC (Auto) 0 Urine RBC (Auto) 10-30 H U Hyaline Cast (Auto) 1-5 U Epithel Cells (Auto) 0-5 Urine Bacteria (Auto) Negative 11/08/18 11/08/18 07:15 07:15 WBC 11.49 H RBC 4.65 L Hgb 14.4 POC Hgb Hct 40.2 L POC Hct MCV 86.5 MCH 31.0 MCHC 35.8 RDW Std Deviation 40.9 RDW Coeff of Christiane 12.9 Plt Count 188 MPV 10.6 H Immature Gran % (Auto) 0.3 Neut % (Auto) 73.3 Lymph % (Auto) 18.2 Kent % (Auto) 8.2 Eos % (Auto) 0.0 Baso % (Auto) 0.0 Immature Gran # (Auto) 0.03 H Neut # (Auto) 8.43 H Lymph # (Auto) 2.09 Kent # (Auto) 0.94 H Eos # (Auto) 0.00 Baso # (Auto) 0.00 POC Sodium Sodium 134 L POC Potassium Potassium 3.9 POC Chloride Chloride 101 Carbon Dioxide 25 POC Total CO2 Anion Gap 8.0 POC Anion Gap POC BUN BUN 13 Creatinine 0.89 POC Creatinine Est Cr Clr Drug Dosing 71.7 Est GFR ( Amer) 94.3 Est GFR (Non-Af Amer) 81.3 BUN/Creatinine Ratio 14.9 Glucose 110 H POC Glucose (other) Calcium 9.1 POC Ioniz Calcium Mike Total Bilirubin 0.7 AST 19 ALT 22 Alkaline Phosphatase 63 Total Creatine Kinase Troponin I NT-Pro-B Natriuret Pep Total Protein 7.2 Albumin 3.5 Globulin 3.7 Albumin/Globulin Ratio 0.9 Prostate Specific Ag Free PSA % Free PSA TSH Urine Color Urine Appearance Urine pH Ur Specific [place] Urine Protein Urine Glucose (UA) Urine Ketones Urine Blood Urine Nitrite Urine Bilirubin Urine Urobilinogen Ur Leukocyte Esterase Urine WBC (Auto) Urine RBC (Auto) U Hyaline Cast (Auto) U Epithel Cells (Auto) Urine Bacteria (Auto) Diagnostic Findings Telemetry personally reviewed: Sinus bradycardia. Nonsustained accelerated junctional rhythm versus SVT with a heart rate in the 120s. There was 1 noted episode, but otherwise sinus. ECGs personally reviewed: ECG 11/07/1916: Sinus bradycardia 56 bpm. IVCB. Inferior infarct. ECG 11/07/2018 at 10:17 AM: Sinus bradycardia with first-degree AV block. Inferior infarct. IVCB. Thoracic MRI report reviewed as noted above. Echo pending. Medications Administered Current Inpatient Medications Acetaminophen (Tylenol) 650 mg PO Q4H PRN PRN Reason: Pain or Fever Stop: 12/07/18 15:29 Al Hydrox/Mg Hydrox/Simethicone (Maalox) 15 ml PO Q4H PRN PRN Reason: Dyspepsia Stop: 12/07/18 15:29 Aspirin (Ecotrin Ectab) 81 mg PO QPM [facility] Stop: 12/07/18 20:59 Last Admin: 11/07/18 20:09 Dose: 81 mg Documented by: Clopidogrel Bisulfate (Plavix) 75 mg PO QAM [facility] Stop: 12/08/18 08:59 Cyanocobalamin (Vitamin B-12) 500 mcg PO QAM [facility] Stop: 12/08/18 08:59 Donepezil HCl (Aricept) 5 mg PO QAM [facility] Stop: 12/08/18 08:59 Enoxaparin Sodium (Lovenox) 40 mg SQ Q24H [facility] Stop: 12/07/18 21:59 Last Admin: 11/07/18 21:13 Dose: 40 mg Documented by: Fish Oil ([place]-3 (Purified Fish Oil)) 1 gm PO QAM [facility] Stop: 12/08/18 08:59 Furosemide 10 mg/ Syringe 1 mls @ 4 mls/min IV DAILY [facility] Stop: 11/09/18 09:01 Last Admin: 11/07/18 20:08 Dose: 4 mls/min Documented by: Levothyroxine Sodium (Synthroid) 25 mcg PO DAILYBB [facility] Stop: 12/08/18 06:29 Last Admin: 11/08/18 06:00 Dose: 25 mcg Documented by: Magnesium Hydroxide (Milk Of Magnesia) 30 ml PO Q12H PRN PRN Reason: Constipation Stop: 12/07/18 15:29 Multivitamins (Multivitamin Tab) 1 tab PO QA [facility] Stop: 12/08/18 08:59 Polyethylene Glycol (Miralax Powder Packet) 17 gm PO DAILY PRN PRN Reason: Constipation Stop: 12/07/18 15:29 Rosuvastatin Calcium (Crestor) 10 mg PO QPM [facility] Stop: 12/07/18 20:59 Last Admin: 11/07/18 20:09 Dose: 10 mg Documented by: Vitamin D (Vitamin D3) 1,000 units PO QAM [facility] Stop: 12/08/18 08:59 Zolpidem Tartrate (Ambien) 5 mg PO HS PRN PRN Reason: Sleep Stop: 12/07/18 15:29 PG Care Time/CCT Total # of Minutes Spent Total Time Spent with Patient: Total time spent is greater than 50% in coordination of care (as documented) at patient's floor/unit and/or counseling patient:
[2018-11-08] MEDS: FUROSEMIDE 10 MG in SYRINGE 0 ML IV SCH (08:47)
[2018-11-08] MEDS: CHOLECALCIFEROL 1,000 UNITS TAB PO SCH (08:48)
[2018-11-08] MEDS: CYANOCOBALAMIN 500 MCG TABLET (VITAMIN B-12) PO SCH (08:48)
[2018-11-08] MEDS: MULTIVITAMIN TAB PO SCH (08:48)
[2018-11-08] MEDS: OMEGA-3 (PURIFIED FISH OIL) 1 GM CAP PO SCH (08:48)
[2018-11-08] MEDS ORDERED: DONEPEZIL HCL 5 MG TAB PO SCH (09:00)
[2018-11-08] MEDS ORDERED: CLOPIDOGREL BISULFATE 75 MG TAB PO SCH (09:00)
--- NOTE | 2018-11-08 13:44 | Hospitalist Progress Note ---
Date of Service November 08, 2018 Assessment & Plan (1) Malignant neoplasm of thoracic vertebra: POSSIBLE neoplasm, will need biopsy to confirm discussed with radiology, will have to wait several days to a week off of Plavix likely get the biopsy as outpatient discussed with Dr. Palacios today, plan to consult Rad Onc and discuss treatment options based on pathology patient and family aware of the MRI results and know the plan for biopsy (2) Vertebral compression fracture: pain is well controlled PT/OT consults, likely to need rehab (3) Bradycardia: Patient has bradycardia to 40s with a nonspecific intraventricular conduction block. asymptomatic, HR in the 50-60's today d/w Dr. Ellis, can hold his Aricept, only takes 5mg (4) Edema: resolved after one dose of Lasix 20mg IV echo pending likely has some acute heart failure but unclear if systolic or preserved EF will clear up tomorrow (5) Hx of CABG: no chest pain (6) CAD (coronary artery disease): hold Plavix and aspirin in anticipation of needing biopsy (7) Dementia: hold Aricept as it is only 5mg daily and could cause the bradycardia transfer to medical floor, consult PT/OT discussed with family, they feel he will need short term rehab due to weakness and falls Subjective patient doing well this morning, denies any back pain while resting has some pain with movement but not severe edema in legs resolved after a single dose of Lasix on admission discussed case with Dr. Ellis, no serious cardiology issues at this time, he will sign off discussed with Dr. Palacios, he reviewed MRI with radiology and they can perform biopsy plan to do it tomorrow patient's family at the bedside, provided them with extensive update Review of Systems Review of Systems: All systems reviewed & are unremarkable except as noted in HPI & below Constitutional: no fever Respiratory: no cough and no dyspnea Cardiovascular: + edema (nearly resolved); no chest pain Gastrointestinal: no abdominal pain, no nausea, no vomiting, no constipation and no diarrhea/loose stools Musculoskeletal: + back pain (mid back area, with movement) Neurologic: + confusion (baseline, memory issues) Physical Exam Constitutional: WD/WN, vitals as above Eyes: PERRL, conjunctivae normal, anicteric sclerae ENMT: external ear and nose normal, oropharynx normal Neck: trachea midline, no thyromegaly Respiratory: normal respiratory effort, lungs clear to auscultation Cardiovascular: RRR, no murmur, no edema Gastrointestinal (Abdomen): normal bowel sounds, soft, nontender, no hepatosplenomegaly Musculoskeletal: no cyanosis or clubbing, extremities motor strength 5/5 Spine: + limited thoraco-lumbar ROM (pain) Skin: no rashes, warm and dry Neurologic: patellar DTR's 2+ bilat, sensation intact and PERRL, EOMI, accommodation nl, no face palsy, no dysarthria Psychiatric: Orientation: alert, oriented to person, oriented to place and cooperative; + not oriented to time Cognition: attention grossly intact; + recent memory not intact Lymphatic: no cervical or axillary lymphadenopathy Results & Data Vital Signs (Past 12 Hours) Vital Signs Temp Pulse Resp BP Pulse Ox 11/08/18 11:41 36.3 C L 62 20 141/75 H 96 11/08/18 10:30 36.8 C 51 L 20 131/68 95 11/08/18 06:48 36.7 C 69 19 162/76 H 97 Laboratory Results Laboratory Results - last 24 hr 11/08/18 11/08/18 07:15 07:15 WBC 11.49 H RBC 4.65 L Hgb 14.4 Hct 40.2 L MCV 86.5 MCH 31.0 MCHC 35.8 RDW Std Deviation 40.9 RDW Coeff of Christiane 12.9 Plt Count 188 MPV 10.6 H Immature Gran % (Auto) 0.3 Neut % (Auto) 73.3 Lymph % (Auto) 18.2 Barber % (Auto) 8.2 Eos % (Auto) 0.0 Baso % (Auto) 0.0 Immature Gran # (Auto) 0.03 H Neut # (Auto) 8.43 H Lymph # (Auto) 2.09 Barber # (Auto) 0.94 H Eos # (Auto) 0.00 Baso # (Auto) 0.00 Sodium 134 L Potassium 3.9 Chloride 101 Carbon Dioxide 25 Anion Gap 8.0 BUN 13 Creatinine 0.89 Est Cr Clr Drug Dosing 71.7 Est GFR ( Amer) 94.3 Est GFR (Non-Af Amer) 81.3 BUN/Creatinine Ratio 14.9 Glucose 110 H Calcium 9.1 Total Bilirubin 0.7 AST 19 ALT 22 Alkaline Phosphatase 63 Total Protein 7.2 Albumin 3.5 Globulin 3.7 Albumin/Globulin Ratio 0.9 Diagnostic Findings THORACIC SPINE MRI IMPRESSION: 1. 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 Large paravertebral and epidural component of the mass as above results in severe central canal stenosis with severe bilateral foraminal narrowing at T8-T9 and T9-T10. Primary differential consideration is a plasmacytoma with lymphoma also within the differential. 2. No additional suspicious bone lesions are identified. 3. 25% anterior endplate compression deformity at L5 appears to be subacute or chronic with chronic T4 compression deformity. Correlate with clinical history. 4. No acute fracture or subluxation identified Medications Administered Current Inpatient Medications Acetaminophen (Tylenol) 650 mg PO Q4H PRN PRN Reason: Pain or Fever Stop: 12/07/18 15:29 Al Hydrox/Mg Hydrox/Simethicone (Maalox) 15 ml PO Q4H PRN PRN Reason: Dyspepsia Stop: 12/07/18 15:29 Cyanocobalamin (Vitamin B-12) 500 mcg PO QAM [facility] Stop: 12/08/18 08:59 Last Admin: 11/08/18 08:48 Dose: 500 mcg Documented by: Fish Oil ([place]-3 (Purified Fish Oil)) 1 gm PO QAM [facility] Stop: 12/08/18 08:59 Last Admin: 11/08/18 08:48 Dose: 1 gm Documented by: Levothyroxine Sodium (Synthroid) 25 mcg PO DAILYBB [facility] Stop: 12/08/18 06:29 Last Admin: 11/08/18 06:00 Dose: 25 mcg Documented by: Magnesium Hydroxide (Milk Of Magnesia) 30 ml PO Q12H PRN PRN Reason: Constipation Stop: 12/07/18 15:29 Multivitamins (Multivitamin Tab) 1 tab PO QAM [facility] Stop: 12/08/18 08:59 Last Admin: 11/08/18 08:48 Dose: 1 tab Documented by: Polyethylene Glycol (Miralax Powder Packet) 17 gm PO DAILY PRN PRN Reason: Constipation Stop: 12/07/18 15:29 Rosuvastatin Calcium (Crestor) 10 mg PO QPM [facility] Stop: 12/07/18 20:59 Last Admin: 11/07/18 20:09 Dose: 10 mg Documented by: Vitamin D (Vitamin D3) 1,000 units PO QAM [facility] Stop: 12/08/18 08:59 Last Admin: 11/08/18 08:48 Dose: 1,000 units Documented by: PG Care Time/CCT Total # of Minutes Spent Total Time Spent with Patient: Total time spent is greater than 50% in coordination of care (as documented) at patient's floor/unit and/or counseling patient: (1) Vertebral compression fracture Encounter type: initial encounter Fracture of vertebra location: thoracic Thoracic vertebra fracture level: T9 Qualified Code(s): S22.070A - Wedge compression fracture of T9-T10 vertebra, initial encounter for closed fracture
--- NOTE | 2018-11-08 16:38 | Oncology Consultation ---
Date of Consultation November 08, 2018 Assessment & Plan (1) Malignant neoplasm of thoracic vertebra: The appearance of this lesion is very worrisome for a malignancy. We will need to obtain a biopsy. However, he is on Plavix and so that may need to be delayed. His labs are not really suggestive of multiple myeloma, but this could represent a solitary plasmacytoma. I would check an SPEP, serum immunofixation, and serum free light chains. I also would have radiation oncology see the patien t, as he will likely need RT. He may also need surgery and I would have orthopedic surgery review his scans. Present on Admission?: Yes History of Present Illness Reason for Consultation: Expansile bone lesion in his thoracic spine Attending Physician: Dawood Rock, DO History of Present Illness Mr. Carias is a 77 year old man with a history of dementia, CAD s/p CABG, CHF, and arrhythmias. He was unable to give a reliable history during our encounter. He told me he didn't know why he was here. He denied any pain or other acute symptoms, but he gave different histories to other physicians who have interviewed him on this stay, so I am not sure what to make of his description. Per prior notes, he was brought in by his due to a series of falls that began in June. They were associated with some back and flank pain and a ~25 lb weight loss since the beginning of the year. Imaging in the ER revealed a permeative destructive lesion involving the T9 vertebral body with associated abnormal paravertebral and pleural/subpleural soft tissue. The mass extended into the left paravertebral/extrapleural space from the T7-T11 levels and demonstrates epidural involvement with severe central canal narrowing. No other osseous lesions were seen and no obvious visceral organ lesions were seen to suggest a primary. Allergies Allergy/AdvReac Type Severity Reaction Status Date / Time bee venom protein (honey bee) Allergy Intermediate SWELLING Unverified 11/07/18 10:42 Home Medications Home Medications Medication Instructions Recorded Confirmed Type aspirin 81 mg PO QPM 06/10/18 11/07/18 History cholecalciferol (vitamin D3) 1,000 unit PO QAM 06/10/18 11/07/18 History [Vitamin D3] clopidogrel 75 mg PO QAM 06/10/18 11/07/18 History cyanocobalamin (vitamin B-12) 500 mcg PO QAM 06/10/18 11/07/18 History [Vitamin B-12] donepezil 5 mg PO QAM 06/10/18 11/07/18 History levothyroxine 25 mcg PO QAM 06/10/18 11/07/18 History multivitamin 1 tab PO QAM 06/10/18 11/07/18 History omega 9-okg-ouj-fish oil [Fish Oil] 1 cap PO QAM 06/10/18 11/07/18 History rosuvastatin 10 mg PO QPM 06/10/18 11/07/18 History Patient History Medical History Hypertension CAD (coronary artery disease) Heart disease (Chronic) Dehydration (Acute) Orthostatic hypotension (Acute) Sinusitis (Acute) Surgical History Hx of CABG Hx of appendectomy (Resolved) Family History Other Family history non-contributory Social History Preferred Language: Khmer Communication Ability: Impaired Quarter Section Ironer Required: No Beliefs That Will Affect Care: None marital status: Current Living Situation: Spouse current occupational status: retired Other Information That Helps Us Care for You: No Feels Safe at Home: Yes Safety Concerns: Feels Safe At This Time Smoking Status: Former smoker Do You Dip or Chew Tobacco: No ; Second Hand Exposure: No ; Tobacco Cessation Education Requested by Patient: No Hx Alcohol Use: No Hx Substance Use: No Review of Systems Review of Systems: Unobtainable due to cognitive status Physical Exam Constitutional: + thin and comfortable; no acute distress ENMT: external ear and nose normal, oropharynx normal Respiratory: normal respiratory effort Auscultation: lungs clear to aus cultation bilaterally Cardiovascular: RRR, no murmur, no edema Gastrointestinal (Abdomen): Inspection/Auscultation: normal bowel sounds; abdomen not distended Percussion/Palpation: abdomen soft; abdomen nontender Skin: no rashes, warm and dry Lymphatic: no cervical or axillary lymphadenopathy Results & Data Vital Signs (Past 12 Hours) Vital Signs Temp Pulse Resp BP Pulse Ox 11/08/18 15:09 36.3 C L 48 L 22 127/66 96 11/08/18 11:41 36.3 C L 62 20 141/75 H 96 11/08/18 10:30 36.8 C 51 L 20 131/68 95 11/08/18 06:48 36.7 C 69 19 162/76 H 97 Laboratory Results Laboratory Results - last 24 hr 11/08/18 11/08/18 07:15 07:15 WBC 11.49 H RBC 4.65 L Hgb 14.4 Hct 40.2 L MCV 86.5 MCH 31.0 MCHC 35.8 RDW Std Deviation 40.9 RDW Coeff of Christiane 12.9 Plt Count 188 MPV 10.6 H Immature Gran % (Auto) 0.3 Neut % (Auto) 73.3 Lymph % (Auto) 18.2 Early % (Auto) 8.2 Eos % (Auto) 0.0 Baso % (Auto) 0.0 Immature Gran # (Auto) 0.03 H Neut # (Auto) 8.43 H Lymph # (Auto) 2.09 Early # (Auto) 0.94 H Eos # (Auto) 0.00 Baso # (Auto) 0.00 Sodium 134 L Potassium 3.9 Chloride 101 Carbon Dioxide 25 Anion Gap 8.0 BUN 13 Creatinine 0.89 Est Cr Clr Drug Dosing 71.7 Est GFR ( Amer) 94.3 Est GFR (Non-Af Amer) 81.3 BUN/Creatinine Ratio 14.9 Glucose 110 H Calcium 9.1 Total Bilirubin 0.7 AST 19 ALT 22 Alkaline Phosphatase 63 Total Protein 7.2 Albumin 3.5 Globulin 3.7 Albumin/Globulin Ratio 0.9 Diagnostic Findings I reviewed his images personally, along with the reports from the interpreting radiologists. See the HPI for the notable findings.
[2018-11-08] MEDS: ROSUVASTATIN CALCIUM 10 MG TAB PO SCH (20:32)
[2018-11-08] MEDS: POLYETHYLENE (MIRALAX) 17 GM PACK PO PRN (20:34)
[2018-11-09] MEDS: LEVOTHYROXINE SODIUM 25 MCG TABLET PO SCH (06:03)
[2018-11-09 07:18] LABS: Basophils # (auto) 0.02 K/uL (0-0.2); Basophils % (auto) 0.3 %; Eosinophils # (auto) 0.13 K/uL (0-0.5); Eosinophils % (auto) 1.8 %; Hematocrit (blood only) 40.4 % (42-52); Hemoglobin 13.9 g/dL (14.0-18.0); Immature Granulocytes # (auto) 0.01 K/uL (0.00-0.02); Immature Granulocytes % (auto) 0.1 %; Lymphocytes % (auto) 40.1 %; Mean Corpuscular Hemoglobin 30.2 pg (25-34); Mean Corpuscular Hgb Conc 34.4 g/dL (32-36); Mean Corpuscular Volume 87.8 fL (80-100); Mean Platelet Volume 10.7 fL (7.4-10.4); Monocytes # (auto) 0.72 K/uL (0.11-0.59); Monocytes % (auto) 9.9 %; Neutrophils # (auto) 3.46 K/uL (1.4-6.5); Neutrophils % (auto) 47.8 %; Platelet Count 180 K/uL (130-400); RDW Coefficient of Variation 13.2 % (11.5-14.5); RDW Standard Deviation 42.6 fL (36.4-46.3); White Blood Count 7.24 K/uL (4.8-10.8)
[2018-11-09 07:52] LABS: Albumin Level 3.4 gm/dl (3.4-5.0); BUN Creatinine Ratio 19.5 (10-20); Creatinine Clr Calc Pharmacy 67.2 ml/min; Est GFR (African American) 87.9; Est GFR (Non-African American) 75.8; Potassium 3.8 mmol/L (3.5-5.1)
[2018-11-09 07:55] LABS: Bilirubin,Total 0.6 mg/dl (0.2-1); Globulin 3.3 gm/dl (2.5-4.0); Total Protein 6.7 gm/dl (6.4-8.2)
[2018-11-09] MEDS: CYANOCOBALAMIN 500 MCG TABLET (VITAMIN B-12) PO SCH (08:18)
[2018-11-09] MEDS: CHOLECALCIFEROL 1,000 UNITS TAB PO SCH (08:18)
[2018-11-09] MEDS: MULTIVITAMIN TAB PO SCH (08:19)
--- NOTE | 2018-11-09 11:27 | Hospitalist Progress Note ---
Date of Service November 09, 2018 Assessment & Plan (1) Malignant neoplasm of thoracic vertebra: POSSIBLE neoplasm, will need biopsy to confirm discussed with radiology, will have to wait several days to a week off of Plavix likely get the biopsy as outpatient discussed with Dr. Palacios today, plan to consult Rad Onc and discuss treatment options based on pathology will order SPEP, serum immunofixation, light chain levels these are reference labs so will take several days discussed with Dr. Hickey on 11/09 he has some concerns for stability of T9 level patient may benefit from kyphoplasty he recommends that the patient only remain in bed or OOB in chair, no lifting (2) Vertebral compression fracture: pain is well controlled PT/OT consults, however, for time being should only be in bed or OOB in chair (3) Bradycardia: Patient has bradycardia to 40s with a nonspecific intraventricular conduction block. asymptomatic, HR in the 50-60's on 11/08 d/w Dr. Ellis, can hold his Aricept, only takes 5mg (4) Edema: resolved after one dose of Lasix 20mg IV echo shows EF of 50-55% edema resolved for two days, this does not represent heart failure (5) Hx of CABG: no chest pain (6) CAD (coronary artery disease): hold Plavix and aspirin in anticipation of needing biopsy or possibly surgery (7) Dementia: hold Aricept as it is only 5mg daily and could cause the bradycardia transfer to medical floor, consult PT/OT will update family at the bedside he will be here over the weekend as we plan course of treatment/biopsy/surgery Subjective patient sitting up in chair, no complaints he said that he ate a good breakfast no dyspnea, no chest pain, no back pain, no weakness in legs discussed the case with Dr. Palacios, will order SPEP, serum immunofixation and light chains discussed with Dr. Hickey who also reviewed the CT and MRI he will look into possibility of kyphoplasty and getting tissue biopsy concerned that the vertebrae is unstable, if he would have collapse there would be high risk for paralysis below that level no plans for discharge at this time will continue to work on definitive plan Review of Systems Review of Systems: All systems reviewed & are unremarkable except as noted in HPI & below Musculoskeletal: + muscle weakness (lower legs) Neurologic: + gait abnormality and + unsteadiness Physical Exam Constitutional: WD/WN, vitals as above Eyes: PERRL, conjunctivae normal, anicteric sclerae ENMT: external ear and nose normal, oropharynx normal Neck: trachea midline, no thyromegaly Respiratory: normal respiratory effort, lungs clear to auscultation Cardiovascular: RRR, no murmur, no edema Gastrointestinal (Abdomen): normal bowel sounds, soft, nontender, no hepatosp lenomegaly Musculoskeletal: no cyanosis or clubbing, extremities motor strength 5/5 Spine: + limited thoraco-lumbar ROM (pain) Skin: no rashes, warm and dry Neurologic: patellar DTR's 2+ bilat, sensation intact and PERRL, EOMI, accommodation nl, no face palsy, no dysarthria Psychiatric: Orientation: alert, oriented to person, oriented to place and cooperative; + not oriented to time Cognition: attention grossly intact; + recent memory not intact Lymphatic: no cervical or axillary lymphadenopathy Results & Data Vital Signs (Past 12 Hours) Vital Signs Temp Pulse Resp BP Pulse Ox 11/09/18 07:33 36.5 C 52 L 20 139/70 95 Laboratory Results Laboratory Results - last 24 hr 11/09/18 11/09/18 07:04 07:04 WBC 7.24 RBC 4.60 L Hgb 13.9 L Hct 40.4 L MCV 87.8 MCH 30.2 MCHC 34.4 RDW Std Deviation 42.6 RDW Coeff of Christiane 13.2 Plt Count 180 MPV 10.7 H Immature Gran % (Auto) 0.1 Neut % (Auto) 47.8 Lymph % (Auto) 40.1 Butts % (Auto) 9.9 Eos % (Auto) 1.8 Baso % (Auto) 0.3 Immature Gran # (Auto) 0.01 Neut # (Auto) 3.46 Lymph # (Auto) 2.90 Butts # (Auto) 0.72 H Eos # (Auto) 0.13 Baso # (Auto) 0.02 Sodium 135 L Potassium 3.8 Chloride 99 Carbon Dioxide 30 Anion Gap 5.0 BUN 19 H Creatinine 0.95 Est Cr Clr Drug Dosing 67.2 Est GFR ( Amer) 87.9 Est GFR (Non-Af Amer) 75.8 BUN/Creatinine Ratio 19.5 Glucose 86 Calcium 9.0 Total Bilirubin 0.6 AST 21 ALT 24 Alkaline Phosphatase 59 Total Protein 6.7 Albumin 3.4 Globulin 3.3 Albumin/Globulin Ratio 1.0 Medications Administered Current Inpatient Medications Acetaminophen (Tylenol) 650 mg PO Q4H PRN PRN Reason: Pain or Fever Stop: 12/07/18 15:29 Al Hydrox/Mg Hydrox/Simethicone (Maalox) 15 ml PO Q4H PRN PRN Reason: Dyspepsia Stop: 12/07/18 15:29 Last Admin: 11/09/18 01:44 Dose: 15 ml Documented by: Cyanocobalamin (Vitamin B-12) 500 mcg PO QAM [facility] Stop: 12/08/18 08:59 Last Admin: 11/09/18 08:18 Dose: 500 mcg Documented by: Fish Oil ([place]-3 (Purified Fish Oil)) 1 gm PO QAM [facility] Stop: 12/08/18 08:59 Last Admin: 11/08/18 08:48 Dose: 1 gm Documented by: Levothyroxine Sodium (Synthroid) 25 mcg PO DAILYBB [facility] Stop: 12/08/18 06:29 Last Admin: 11/09/18 06:03 Dose: 25 mcg Documented by: Magnesium Hydroxide (Milk Of Magnesia) 30 ml PO Q12H PRN PRN Reason: Constipation Stop: 12/07/18 15:29 Multivitamins (Multivitamin Tab) 1 tab PO [facility] Stop: 12/08/18 08:59 Last Admin: 11/09/18 08:19 Dose: 1 tab Documented by: Polyethylene Glycol (Miralax Powder Packet) 17 gm PO DAILY PRN PRN Reason: Constipation Stop: 12/07/18 15:29 Last Admin: 11/08/18 20:34 Dose: 17 gm Documented by: Rosuvastatin Calcium (Crestor) 10 mg PO QPM [facility] Stop: 12/07/18 20:59 Last Admin: 11/08/18 20:32 Dose: 10 mg Documented by: Vitamin D (Vitamin D3) [facility] [place] Stop: 12/08/18 08:59 Last Admin: 11/09/18 08:18 Dose: 1,000 units Documented by: PG Care Time/CCT Total # of Minutes Spent Total Time Spent with Patient: Total time spent is greater than 50% in coordination of care (as documented) at patient's floor/unit and/or counseling patient: (1) Vertebral compression fracture Encounter type: initial encounter Fracture of vertebra location: thoracic Thoracic vertebra fracture level: T9 Qualified Code(s): S22.070A - Wedge compression fracture of T9-T10 vertebra, initial encounter for closed fracture
[2018-11-09] MEDS: OMEGA-3 (PURIFIED FISH OIL) 1 GM CAP PO SCH (11:56)
[2018-11-09] MEDS: ROSUVASTATIN CALCIUM 10 MG TAB PO SCH (20:32)
[2018-11-09] MEDS: ACETAMINOPHEN 325 MG TAB PO PRN (20:35)
[2018-11-10] MEDS: POLYETHYLENE (MIRALAX) 17 GM PACK PO PRN (03:49)
[2018-11-10] MEDS: LEVOTHYROXINE SODIUM 25 MCG TABLET PO SCH (06:02)
[2018-11-10 06:23] LABS: Basophils # (auto) 0.02 K/uL (0-0.2); Basophils % (auto) 0.3 %; Eosinophils # (auto) 0.18 K/uL (0-0.5); Eosinophils % (auto) 2.4 %; Hematocrit (blood only) 39.6 % (42-52); Hemoglobin 13.8 g/dL (14.0-18.0); Immature Granulocytes # (auto) 0.01 K/uL (0.00-0.02); Immature Granulocytes % (auto) 0.1 %; Lymphocytes # (auto) 2.41 K/uL (1.2-3.4); Lymphocytes % (auto) 31.7 %; Mean Corpuscular Hgb Conc 34.8 g/dL (32-36); Mean Platelet Volume 11.1 fL (7.4-10.4); Monocytes # (auto) 0.87 K/uL (0.11-0.59); Monocytes % (auto) 11.4 %; Neutrophils # (auto) 4.11 K/uL (1.4-6.5); Neutrophils % (auto) 54.1 %; Platelet Count 181 K/uL (130-400); RDW Coefficient of Variation 13.2 % (11.5-14.5); RDW Standard Deviation 42.8 fL (36.4-46.3); Red Blood Count 4.45 M/uL (4.7-6.1)
[2018-11-10 06:57] LABS: Albumin Level 3.3 gm/dl (3.4-5.0); BUN Creatinine Ratio 23.3 (10-20); Bilirubin,Total 0.5 mg/dl (0.2-1); Calcium 8.7 mg/dl (8.5-10.1); Creatinine Clr Calc Pharmacy 67.2 ml/min; Est GFR (African American) 87.9; Est GFR (Non-African American) 75.8; Globulin 3.3 gm/dl (2.5-4.0); Potassium 4.1 mmol/L (3.5-5.1); Total Protein 6.6 gm/dl (6.4-8.2)
[2018-11-10] MEDS: MULTIVITAMIN TAB PO SCH (08:57)
[2018-11-10] MEDS: CHOLECALCIFEROL 1,000 UNITS TAB PO SCH (08:58)
[2018-11-10] MEDS: CYANOCOBALAMIN 500 MCG TABLET (VITAMIN B-12) PO SCH (08:58)
[2018-11-10] MEDS: OMEGA-3 (PURIFIED FISH OIL) 1 GM CAP PO SCH (08:58)
--- NOTE | 2018-11-10 12:24 | Orthopedic Consultation ---
Date of Consultation November 10, 2018 Assessment & Plan (1) Malignant neoplasm of thoracic vertebra: Patient does have evidence of malignancy at the T9 vertebral body with significant canal encroachment. Fortunately he is neurologically intact at this time however looking at the pattern of bony destruction on CAT scan and MRI I am concerned that this could developed into marked instability causing worsening canal compromise and ultimately at risk for paralysis. Unfortunately my hands I would not be able to provide a surgical stabilization for the patient. If he were to pursue surgery as an option he would require most likely transfer to a tertiary care facility. 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 Today he states he has relatively no thoracic back pain he is denying any numbness or tingling to the lower extremities. He denies any str ength deficits. He states he is comfortable at this time. Allergies Allergy/AdvReac Type Severity Reaction Status Date / Time bee venom protein (honey bee) Allergy Intermediate SWELLING Unverified 11/07/18 10:42 Home Medications Home Medications Medication Instructions Recorded Confirmed Type aspirin 81 mg PO QPM 06/10/18 11/07/18 History cholecalciferol (vitamin D3) 1,000 unit PO QAM 06/10/18 11/07/18 History [Vitamin D3] clopidogrel 75 mg PO QAM 06/10/18 11/07/18 History cyanocobalamin (vitamin B-12) 500 mcg PO QAM 06/10/18 11/07/18 History [Vitamin B-12] donepezil 5 mg PO QAM 06/10/18 11/07/18 History levothyroxine 25 mcg PO QAM 06/10/18 11/07/18 History multivitamin 1 tab PO QAM 06/10/18 11/07/18 History omega 1-jdi-fvj-fish oil [Fish Oil] 1 cap PO QAM 06/10/18 11/07/18 History rosuvastatin 10 mg PO QPM 06/10/18 11/07/18 History Patient History Medical History Hypertension CAD (coronary artery disease) Heart disease (Chronic) Dehydration (Acute) Orthostatic hypotension (Acute) Sinusitis (Acute) Surgical History Hx of CABG Hx of appendectomy (Resolved) Family History Other Family history non-contributory Social History Preferred Language: New Zealander Communication Ability: Impaired Product Director Required: No Beliefs That Will Affect Care: None marital status: Current Living Situation: Spouse current occupational status: retired Other Information That Helps Us Care for You: No Feels Safe at Home: Yes Safety Concerns: Feels Safe At This Time Smoking Status: Former smoker Do You Dip or Chew Tobacco: No ; Second Hand Exposure: No ; Tobacco Cessation Education Requested by Patient: No Hx Alcohol Use: No Hx Substance Use: No Physical Exam Physical Exam: Patient is in the chair at the bedside. He was able to bend forward without difficulty. Palpation and percussion of the thoracolumbar region reveals no pain. There is no abnormal skin markings. Is good strength testing lower extremities. Results & Data Vital Signs (Past 12 Hours) Vital Signs Temp Pulse Resp BP BP Pulse Ox 11/10/18 11:32 36.4 C L 53 L 18 161/72 H 94 11/10/18 06:44 36.5 C 47 L 20 148/70 H 97 11/10/18 03:30 36.5 C 47 L 20 155/71 H 96
--- NOTE | 2018-11-10 15:34 | Hospitalist Progress Note ---
Date of Service November 10, 2018 Assessment & Plan (1) Malignant neoplasm of thoracic vertebra: POSSIBLE neoplasm, will need biopsy to confirm discussed with radiology, will have to wait several days to a week off of Plavix likely get the biopsy as outpatient discussed with Dr. Palacios, plan to consult Rad Onc and discuss treatment options based on pathology will order SPEP, serum immunofixation, light chain levels these are reference labs so will take several days discussed with Dr. Hickey on 11/10 he has some concerns for stability of T9 level patient may benefit from surgery (ie fusion posteriorly) he recommends that the patient only remain in bed or OOB in chair, no lifting will discuss with family tomorrow morning, specifically POA, about possible transfer to [place] for opinion from spine surgeon (2) Vertebral compression fracture: pain is well controlled PT/OT consults, however, for time being should only be in bed or OOB in chair (3) Bradycardia: Patient has bradycardia to 40s with a nonspecific intraventricular conduction block. asymptomatic, HR in the 50-60's on 11/08 d/w Dr. Ellis, can hold his Aricept, only takes 5mg (4) Edema: resolved after one dose of Lasix 20mg IV echo shows EF of 50-55% edema resolved for two days, this does not represent heart failure (5) Hx of CABG: no chest pain (6) CAD (coronary artery disease): hold Plavix and aspirin in anticipation of needing biopsy or possibly surgery (7) Dementia: hold Aricept as it is only 5mg daily and could cause the bradycardia transfer to medical floor, consult PT/OT possible transfer to [place] tomorrow if patient's family is in agreement Subjective patient doing fine today, no new issues eating well, moving bowels no dyspnea, no chest pain, denies any back pain following instructions of just being in chair and bed discussed case with Dr. Hickey, he would not perform surgery here, would recommend opinion from tertiary care long discussion with patient's daughter Daphney over the phone discussed option of going to tertiary care discussed that she and her siblings and her mother, who is the POA, should discuss this evening we can talk about it in the morning and decide on calling [facility] would not want to send him there if they would not be interested in surgery Review of Systems Review of Systems: All systems reviewed & are unremarkable except as noted in HPI & below Physical Exam Constitutional: WD/WN, vitals as above Eyes: PERRL, conjunctivae normal, anicteric sclerae ENMT: external ear and nose normal, oropharynx normal Neck: trachea midline, no thyromegaly Respiratory: normal respiratory effort, lungs clear to auscultation Cardiovascular: RRR, no murmur, no edema Gastrointestinal (Abdomen): normal bowel sounds, soft, nontender, no hepatosplenomegaly Musculoskeletal: no cyanosis or clubbing, extremities motor strength 5/5 Spine: + limited thoraco-lumbar ROM (pain) Skin: no rashes, warm and dry Neurologic: patellar DTR's 2+ bilat, sensation intact and PERRL, EOMI, accommodation nl, no face palsy, no dysarthria Psychiatric: Orientation: alert, oriented to person, oriented to place and cooperative; + not oriented to time Cognition: attention grossly intact; + recent memory not intact Lymphatic: no cervical or axillary lymphadenopathy Results & Data Vital Signs (Past 12 Hours) Vital Signs Temp Pulse Resp BP BP Pulse Ox 11/10/18 11:32 36.4 C L 53 L 18 161/72 H 94 11/10/18 06:44 36.5 C 47 L 20 148/70 H 97 11/10/18 03:30 36.5 C 47 L 20 155/71 H 96 Laboratory Results Laboratory Results - last 24 hr 11/10/18 11/10/18 11/10/18 05:49 05:49 05:49 WBC 7.60 RBC 4.45 L Hgb 13.8 L Hct 39.6 L MCV 89.0 MCH 31.0 MCHC 34.8 RDW Std Deviation 42.8 RDW Coeff of Christiane 13.2 Plt Count 181 MPV 11.1 H Immature Gran % (Auto) 0.1 Neut % (Auto) 54.1 Lymph % (Auto) 31.7 [place] % (Auto) 11.4 Eos % (Auto) 2.4 Baso % (Auto) 0.3 Immature Gran # (Auto) 0.01 Neut # (Auto) 4.11 Lymph # (Auto) 2.41 [place] # (Auto) 0.87 H Eos # (Auto) 0.18 Baso # (Auto) 0.02 Sodium 134 L Potassium 4.1 Chloride 100 Carbon Dioxide 30 Anion Gap 4.0 BUN 22 H Creatinine 0.95 Est Cr Clr Drug Dosing 67.2 Est GFR ( Amer) 87.9 Est GFR (Non-Af Amer) 75.8 BUN/Creatinine Ratio 23.3 H Glucose 93 POC Glucose Calcium 8.7 Total Bilirubin 0.5 AST 22 ALT 29 Alkaline Phosphatase 56 Total Protein 6.6 Total Protein (PEP) Pending Albumin 3.3 L Albumin (PEP) Pending Globulin 3.3 Albumin/Globulin Ratio 1.0 Kvqda-0-Ebvrtskia Pending Zmfnq-3-Sfkszsegn Pending Wcyo-3-Umlvudkf Pending Svts-4-Vhfqufpw Pending Gamma Globulins Pending Monoclonal Peak 3 Pending Ser Monoclonl Protein Pending Ser Monoclonal Prot 2 Pending PEP Interpretation Pending Serum Immunofixation Pending Tot Celoron/Lambda Ratio Pending Celoron Light Chain Anal Pending Free Celoron LC, Quant Pending Lambda Light Chain Anal Pending Free Lambda LC, Quant Pending Free Cel[place]/Lambda Ratio Pending 11/10/18 07:12 WBC RBC Hgb Hct MCV MCH MCHC RDW Std Deviation RDW Coeff of Christiane Plt Count MPV Immature Gran % (Auto) Neut % (Auto) Lymph % (Auto) [place] % (Auto) Eos % (Auto) Baso % (Auto) Immature Gran # (Auto) Neut # (Auto) Lymph # (Auto) [place] # (Auto) Eos # (Auto) Baso # (Auto) Sodium Potassium Chloride Carbon Dioxide Anion Gap BUN Creatinine Est Cr Clr Drug Dosing Est GFR ( Amer) Est GFR (Non-Af Amer) BUN/Creatinine Ratio Glucose POC Glucose 96 Calcium Total Bilirubin AST ALT Alkaline Phosphatase Total Protein Total Protein (PEP) Albumin Albumin (PEP) Globulin Albumin/Globulin Ratio Ftshi-8-Oephrtmru Pczzc-1-Dmhzjqala Oeok-5-Rznjcenb Phyk-0-Cljgwebc Gamma Globulins Monoclonal Peak 3 Ser Monoclonl Protein Ser Monoclonal Prot 2 PEP Interpretation Serum Immunofixation Tot Celoron/Lambda Ratio Celoron Light Chain Anal Free Celoron LC, Quant Lambda Light Chain Anal Free Lambda LC, Quant Free Celoron/Lambda Ratio Medications Administered Current Inpatient Medications Acetaminophen (Tylenol) 650 mg PO Q4H PRN PRN Reason: Pain or Fever Stop: 12/07/18 15:29 Last Admin: 11/09/18 20:35 Dose: 650 mg Documented by: Al Hydrox/Mg Hydrox/Simethicone (Maalox) 15 ml PO Q4H PRN PRN Reason: Dyspepsia Stop: 12/07/18 15:29 Last Admin: 11/09/18 01:44 Dose: 15 ml Documented by: Cyanocobalamin (Vitamin B-12) 500 mcg PO QAM [facility] Stop: 12/08/18 08:59 Last Admin: 11/10/18 08:58 Dose: 500 mcg Documented by: Fish Oil ([place]-3 (Purified Fish Oil)) 1 gm PO QAM [facility] Stop: 12/08/18 08:59 Last Admin: 11/10/18 08:58 Dose: 1 gm Documented by: Levothyroxine Sodium (Synthroid) 25 mcg PO DAILYBB [facility] Stop: 12/08/18 06:29 Last Admin: 11/10/18 06:02 Dose: 25 mcg Documented by: Magnesium Hydroxide (Milk Of Magnesia) 30 ml PO Q12H PRN PRN Reason: Constipation Stop: 12/07/18 15:29 Last Admin: 11/09/18 14:33 Dose: 30 ml Documented by: Multivitamins (Multivitamin Tab) [address] [facility] [place] Stop: 12/08/18 08:59 Last Admin: 11/10/18 08:57 Dose: 1 tab Documented by: Polyethylene Glycol (Miralax Powder Packet) 17 gm PO DAILY PRN PRN Reason: Constipation Stop: 12/07/18 15:29 Last Admin: 11/10/18 03:49 Dose: 17 gm Documented by: Rosuvastatin Calcium (Crestor) 10 mg PO QPM [facility] Stop: 12/07/18 20:59 Last Admin: 11/09/18 20:32 Dose: 10 mg Documented by: Vitamin D (Vitamin D3) 1,000 units PO QAM [facility] Stop: 12/08/18 08:59 Last Admin: 11/10/18 08:58 Dose: 1,000 units Documented by: PG Care Time/CCT Total # of Minutes Spent Total Time Spent with Patient: Total time spent is greater than 50% in coordination of care (as documented) at patient's floor/unit and/or counseling patient: (1) Vertebral compression fracture Encounter type: initial encounter Fracture of vertebra location: thoracic Thoracic vertebra fracture level: T9 Qualified Code(s): S22.070A - Wedge compression fracture of T9-T10 vertebra, initial encounter for closed fracture
[2018-11-10] MEDS: ROSUVASTATIN CALCIUM 10 MG TAB PO SCH (20:24)
[2018-11-10] MEDS: ACETAMINOPHEN 325 MG TAB PO PRN (21:53)
[2018-11-11] MEDS: LEVOTHYROXINE SODIUM 25 MCG TABLET PO SCH (06:02)
[2018-11-11 07:35] LABS: Basophils # (auto) 0.02 K/uL (0-0.2); Basophils % (auto) 0.4 %; Eosinophils # (auto) 0.19 K/uL (0-0.5); Eosinophils % (auto) 3.3 %; Hematocrit (blood only) 39.6 % (42-52); Hemoglobin 13.9 g/dL (14.0-18.0); Immature Granulocytes # (auto) 0.02 K/uL (0.00-0.02); Immature Granulocytes % (auto) 0.4 %; Lymphocytes # (auto) 2.03 K/uL (1.2-3.4); Lymphocytes % (auto) 35.7 %; Mean Corpuscular Hemoglobin 30.6 pg (25-34); Mean Corpuscular Hgb Conc 35.1 g/dL (32-36); Mean Corpuscular Volume 87.2 fL (80-100); Mean Platelet Volume 10.8 fL (7.4-10.4); Monocytes # (auto) 0.66 K/uL (0.11-0.59); Monocytes % (auto) 11.6 %; Neutrophils # (auto) 2.77 K/uL (1.4-6.5); Neutrophils % (auto) 48.6 %; Platelet Count 161 K/uL (130-400); RDW Standard Deviation 41.8 fL (36.4-46.3); Red Blood Count 4.54 M/uL (4.7-6.1); White Blood Count 5.69 K/uL (4.8-10.8)
[2018-11-11] MEDS: MULTIVITAMIN TAB PO SCH (07:42)
[2018-11-11] MEDS: CYANOCOBALAMIN 500 MCG TABLET (VITAMIN B-12) PO SCH (07:42)
[2018-11-11] MEDS: OMEGA-3 (PURIFIED FISH OIL) 1 GM CAP PO SCH (07:42)
[2018-11-11] MEDS: CHOLECALCIFEROL 1,000 UNITS TAB PO SCH (07:43)
[2018-11-11] MEDS: ACETAMINOPHEN 325 MG TAB PO PRN ×2 (07:44→20:41)
[2018-11-11 08:05] LABS: Albumin Level 3.2 gm/dl (3.4-5.0); BUN Creatinine Ratio 20.2 (10-20); Calcium 8.8 mg/dl (8.5-10.1); Creatinine Clr Calc Pharmacy 87.4 ml/min; Est GFR (African American) 102.2; Est GFR (Non-African American) 88.2
[2018-11-11 08:08] LABS: Albumin Globulin Ratio 0.9 (0.9-2); Bilirubin,Total 0.7 mg/dl (0.2-1); Globulin 3.4 gm/dl (2.5-4.0); Total Protein 6.6 gm/dl (6.4-8.2)
--- NOTE | 2018-11-11 14:17 | Hospitalist Progress Note ---
Date of Service November 11, 2018 Assessment & Plan (1) Malignant neoplasm of thoracic vertebra: POSSIBLE neoplasm, will need biopsy to confirm discussed with radiology, would have to wait several days to a week off of Plavix discussed with Dr. Palacios, plan to consult Rad Onc and discuss treatment options based on pathology will order SPEP, serum immunofixation, light chain levels these are reference labs so will take several days discussed with Dr. Hickey on 11/10 he has some concerns for stability of T9 level patient may benefit from surgery (ie fusion posteriorly) he recommends that the patient only remain in bed or OOB in chair, no lifting discussed with Dr. Bolden, spine surgeon from [facility], on 11/11 he agrees to take the patient need to wait until Tuesday to get answer on authorization for transfer, he has [employer] insurance there is a chance insurance would prefer him to go to [place] plan is to wait to hear, if he cannot get approved for [place] then call [place] on Tuesday it is perfectly fine to wait, patient is stable, only in bed or chair, could not really get surgical procedure until 11/15 due to Plavix on 11/08 (2) Vertebral compression fracture: pain is well controlled PT/OT consults, however, for time being should only be in bed or OOB in chair (3) Bradycardia: Patient has bradycardia to 40s with a nonspecific intraventricular conduction block. asymptomatic, HR in the 50-60's on 11/08 d/w Dr. Ellis, can hold his Aricept, only takes 5mg (4) Edema: resolved after one dose of Lasix 20mg IV echo shows EF of 50-55% edema resolved for two days, this does not represent heart failure (5) Hx of CABG: no chest pain (6) CAD (coronary artery disease): hold Plavix and aspirin in anticipation of needing biopsy or possibly surgery last day he took aspirin and Plavix was 11/08 in the morning (7) Dementia: hold Aricept as it is only 5mg daily and could cause the bradycardia plan to transfer to either [place] or [place] on Tuesday depending on answer from [employer] Subjective met with patient and family today family had discussed options and they would like patient to go to [place] for surgical opinion discussed the case with Dr. Bolden, spine surgeon at [place] he agrees to take the patient however, due to patient being [employer] insurance [employer] cannot get authorization over the weekend even then, they may not authorize and request he go to [place] offered to call [facility] for transfer, patient and family would like to wait to hear about insurance auth for [place] Review of Systems Review of Systems: All systems reviewed & are unremarkable except as noted in HPI & below Physical Exam Constitutional: WD/WN, vitals as above Eyes: PERRL, conjunctivae normal, anicteric sclerae ENMT: external ear and nose normal, oropharynx normal Neck: trachea midline, no thyromegaly Respiratory: normal respiratory effort, lungs clear to auscultation Cardiovascular: RRR, no murmur, no edema Gastrointestinal (Abdomen): normal bowel sounds, soft, nontender, no hepatosplenomegaly Musculoskeletal: no cyanosis or clubbing, extremities motor strength 5/5 Spine: + limited thoraco-lumbar ROM (pain) Skin: no rashes, warm and dry Neurologic: patellar DTR's 2+ bilat, sensation intact and PERRL, EOMI, accommodation nl, no face palsy, no dysarthria Psychiatric: Orientation: alert, oriented to person, oriented to place and cooperative; + not oriented to time Cognition: attention grossly intact; + recent memory not intact Lymphatic: no cervical or axillary lymphadenopathy Results & Data Vital Signs (Past 12 Hours) Vital Signs Temp Pulse Resp BP Pulse Ox 11/11/18 07:03 36.7 C 49 L 18 147/76 H 96 Laboratory Results Laboratory Results - last 24 hr 11/11/18 11/11/18 07:02 07:02 WBC 5.69 RBC 4.54 L Hgb 13.9 L Hct 39.6 L MCV 87.2 MCH 30.6 MCHC 35.1 RDW Std Deviation 41.8 RDW Coeff of Christiane 13.0 Plt Count 161 MPV 10.8 H Immature Gran % (Auto) 0.4 Neut % (Auto) 48.6 Lymph % (Auto) 35.7 [place] % (Auto) 11.6 Eos % (Auto) 3.3 Baso % (Auto) 0.4 Immature Gran # (Auto) 0.02 Neut # (Auto) 2.77 Lymph # (Auto) 2.03 [place] # (Auto) 0.66 H Eos # (Auto) 0.19 Baso # (Auto) 0.02 Sodium 134 L Potassium 4.0 Chloride 101 Carbon Dioxide 27 Anion Gap 6.0 BUN 15 Creatinine 0.73 Est Cr Clr Drug Dosing 87.4 Est GFR ( Amer) 102.2 Est GFR (Non-Af Amer) 88.2 BUN/Creatinine Ratio 20.2 H Glucose 91 Calcium 8.8 Total Bilirubin 0.7 AST 20 ALT 32 Alkaline Phosphatase 59 Total Protein 6.6 Albumin 3.2 L Globulin 3.4 Albumin/Globulin Ratio 0.9 Medications Administered Current Inpatient Medications Acetaminophen (Tylenol) 650 mg PO Q4H PRN PRN Reason: Pain or Fever Stop: 12/07/18 15:29 Last Admin: 11/11/18 07:44 Dose: 650 mg Documented by: Al Hydrox/Mg Hydrox/Simethicone (Maalox) 15 ml PO Q4H PRN PRN Reason: Dyspepsia Stop: 12/07/18 15:29 Last Admin: 11/09/18 01:44 Dose: 15 ml Documented by: Cyanocobalamin (Vitamin B-12) 500 [facility] [place]: 12/08/18 08:59 Last Admin: 11/11/18 07:42 Dose: 500 mcg Documented by: Fish Oil ([place]-3 (Purified Fish Oil)) 1 g[facility] [place] Stop: 12/08/18 08:59 Last Admin: 11/11/18 07:42 Dose: 1 gm Documented by: Levothyroxine Sodium (Synthroid) 25 mcg PO DAILYBB [facility] Stop: 12/08/18 06:29 Last Admin: 11/11/18 06:02 Dose: 25 mcg Documented by: Magnesium Hydroxide (Milk Of Magnesia) 30 ml PO Q12H PRN PRN Reason: Constipation Stop: 12/07/18 15:29 Last Admin: 11/09/18 14:33 Dose: 30 ml Documented by: Multivitamins (Multivitamin Tab) 1 tab [facility] [place]: 12/08/18 08:59 Last Admin: 11/11/18 07:42 Dose: 1 tab Documented by: Polyethylene Glycol (Miralax Powder Packet) 17 gm PO DAILY PRN PRN Reason: Constipation Stop: 12/07/18 15:29 Last Admin: 11/10/18 03:49 Dose: 17 gm Documented by: Rosuvastatin Calcium (Crestor) 10 mg PO QPM [facility] Stop: 12/07/18 20:59 Last Admin: 11/10/18 20:24 Dose: 10 mg Documented by: Vitamin D (Vitamin D3) 1,000 units PO QAM [facility] Stop: 12/08/18 08:59 Last Admin: 11/11/18 07:43 Dose: 1,000 units Documented by: PG Care Time/CCT Total # of Minutes Spent Total Time Spent with Patient: Total time spent is greater than 50% in co ordination of care (as documented) at patient's floor/unit and/or counseling patient: (1) Vertebral compression fracture Encounter type: initial encounter Fracture of vertebra location: thoracic Thoracic vertebra fracture level: T9 Qualified Code(s): S22.070A - Wedge compression fracture of T9-T10 vertebra, initial encounter for closed fracture
[2018-11-11] MEDS: ROSUVASTATIN CALCIUM 10 MG TAB PO SCH (20:14)
[2018-11-12] MEDS: ACETAMINOPHEN 325 MG TAB PO PRN ×3 (01:39→20:13)
[2018-11-12 05:46] LABS: Basophils # (auto) 0.02 K/uL (0-0.2); Basophils % (auto) 0.3 %; Eosinophils # (auto) 0.25 K/uL (0-0.5); Eosinophils % (auto) 4.1 %; Hematocrit (blood only) 38.8 % (42-52); Hemoglobin 13.2 g/dL (14.0-18.0); Immature Granulocytes # (auto) 0.01 K/uL (0.00-0.02); Immature Granulocytes % (auto) 0.2 %; Lymphocytes % (auto) 42.8 %; Mean Corpuscular Hemoglobin 29.9 pg (25-34); Monocytes # (auto) 0.71 K/uL (0.11-0.59); Monocytes % (auto) 11.7 %; Neutrophils # (auto) 2.49 K/uL (1.4-6.5); Neutrophils % (auto) 40.9 %; Platelet Count 165 K/uL (130-400); RDW Standard Deviation 41.8 fL (36.4-46.3); Red Blood Count 4.41 M/uL (4.7-6.1); White Blood Count 6.08 K/uL (4.8-10.8)
[2018-11-12 06:25] LABS: Albumin Level 3.1 gm/dl (3.4-5.0); BUN Creatinine Ratio 19.9 (10-20); Calcium 8.9 mg/dl (8.5-10.1); Creatinine Clr Calc Pharmacy 70.9 ml/min; Est GFR (African American) 93.8; Est GFR (Non-African American) 80.9; Potassium 4.3 mmol/L (3.5-5.1)
[2018-11-12 06:28] LABS: Albumin Globulin Ratio 0.9 (0.9-2); Bilirubin,Total 0.6 mg/dl (0.2-1); Globulin 3.4 gm/dl (2.5-4.0); Total Protein 6.5 gm/dl (6.4-8.2)
[2018-11-12] MEDS: LEVOTHYROXINE SODIUM 25 MCG TABLET PO SCH (06:42)
[2018-11-12] MEDS: MULTIVITAMIN TAB PO SCH (08:59)
[2018-11-12] MEDS: OMEGA-3 (PURIFIED FISH OIL) 1 GM CAP PO SCH (08:59)
[2018-11-12] MEDS: CYANOCOBALAMIN 500 MCG TABLET (VITAMIN B-12) PO SCH (08:59)
[2018-11-12] MEDS: CHOLECALCIFEROL 1,000 UNITS TAB PO SCH (08:59)
--- NOTE | 2018-11-12 15:31 | Discharge Summary ---
Date of Service November 12, 2018 Admission HPI Per Admitting Provider plateletsPatient is a 77 years old male with past medical history of coronary artery disease, sinusitis, hypertension, CABG, history of MIs presents to the emergency room with a complaint of back pain that is radiating to his abdomen and it is located mostly under bilateral ribs. She reports weight loss of approximately 25 pounds in 1 year. Patient said it was not intentional and it was related to decreased appetite. Patient increasingly feels more weakness all over his body and reports frequent falls. Patient said he had frequent falls in the past several weeks he did not hit his head no he lost consciousness. Patient said that his lower extremities are swelling up in the past several days and he does not know why. He is taking all of his medicine as prescribed. Patient has field service consultant as Adria and he follow follows up regularly with him. Patient said in 2008 he had a last IL (lasted of 3) and at that time he was reporting abdominal pain and subsequently had surgery done in which per p atient was not found any cause. His first IL happened in 1992. Labs are reviewed: White blood cell 6.28, hemoglobin 14.3 hematocrit 40.4, platelets 175. Sodium 130, potassium 4.1, chloride 96, anion gap 5, creatinine 0.81, GFR 84.5, AST 19, ALT 21, alkaline phosphatase 64, troponin 0 0.015, BNP 497, Albumin 3.6, PSA 2.12, free PSA 0.45., Urine 1+ blood 10-30 red blood cells HEAD: No head ache, dizziness, or head injury. For nitrates, negative for leukocyte esterase negative for viable cells. CT abdomen and pelvis no evidence of solid organ injury. No evidence of fracture or malalignment involving the lumbar spine. There is a permeative obstructive lesion partially visualized involving T9 vertebral body with associated abnormal paravertebral and pleural/subpleural soft tissue. This should be considered neoplasm until proven otherwise. Possibly representing lymphoma or plasmacytoma. No additional obstructive bony lesion are clearly identified. Advanced sigmoid diverticulosis without CT evidence of acute diverticulitis. Kidneys the contrast enhanced kidneys demonstrate cortical atrophy and are without hydronephrosis. The kidneys enhance symmetrically. There is a retroaortic left renal vein. Thoracic CT spine: Mild. Endplate compressive deformity at T4 and T5 which technically age indeterminant but likely old. No definite acute fracture within the thoracic sp ine. Large paravertebral soft tissue mass which involved and surrounds 3 9 vertebral body. This extends into the bilateral T9 and T10 neural foramen and likely demonstrate epidural involvement with severe central canal narrowing. This also extends into the left paravertebral extrapleural space from T7-T11 level. This is consistent with a neoplastic process and may represent lymphoma or plasmacytoma. Lumbar CT -see abdomen pelvis. Head CT there is no hemorrhage, mass affect or evidence of acute territorial ischemia by CT criteria. Chest CT: No evidence of acute intrathoracic injury. Bilateral posterior pars spinal mass centered on the T9 vertebra. There is an normal trabecular pattern of the T9 vertebra, likely due to tumor involvement. There is suspected epidural extension with probably spinal canal narrowing. MRI should be considered in follow-up to evaluate further cord compression. 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 Discharge Exam Constitutional WD/WN, vitals as above Eyes PERRL, conjunctivae normal, anicteric sclerae ENMT external ear and nose normal, oropharynx normal Neck trachea midline, no thyromegaly Respiratory normal respiratory effort, lungs clear to auscultation Cardiovascular RRR, no murmur, no edema Gastrointestinal (Abdomen) normal bowel sounds, soft, nontender, no hepatosplenomegaly Musculoskeletal no cyanosis or clubbing, extremities motor strength 5/5 Spine: + limited thoraco-lumbar ROM (pain) Skin no rashes, warm and dry Neurologic patellar DTR's 2+ bilat, sensation intact and PERRL, EOMI, accommodation nl, no face palsy, no dysarthria Psychiatric Orientation: alert, oriented to person, oriented to place and cooperative; + not oriented to time Cognition: attention grossly intact; + recent memory not intact Lymphatic no cervical or axillary lymphadenopathy Discharge Data Allergies Allergy/AdvReac Type Severity Reaction Status Date / Time bee venom protein (honey bee) Allergy Intermediate SWELLING Unverified 11/07/18 10:42 Consultations 11/07/18 11:37 ED Decision to Admit Stat 11/07/18 15:30 Consult Hematology Routine 11/07/18 18:14 Consult Cardiology Routine 11/09/18 07:33 Consult Orthopedic Surgery Routine 11/11/18 10:37 Burn CD for patient Routine Ordered Studies 11/07/18 09:57 CT abd pelvis IV con only Stat CT cervical spine wo con Stat CT chest w con Stat CT head/brain wo con Stat CT lumbar spine wo con Stat CT thoracic spine wo con Stat 11/07/18 13:35 MR thoracic spine wo con Stat Hospital Course (1) Malignant neoplasm of thoracic vertebra: POSSIBLE neoplasm, will need biopsy to confirm discussed with radiology, would have to wait several days to a week off of Plavix discussed with Dr. Palacios (oncology), plan to consult Rad Onc and discuss treatment options based on pathology ordered SPEP, serum immunofixation, light chain levels drawn on 11/10 and will take several days to come back discussed with Dr. Hickey, spine surgeon, on 11/10 he has some concerns for stability of T9 level patient may benefit from surgery (ie fusion posteriorly) he recommends that the patient only remain in bed or OOB in chair, no lifting discussed with Dr. Metz, neurosurgery at [place] as well as Dr. Franco with hospitalist, they will accept the patient today please note that the last day of Plavix was the morning on 11/08 (2) Vertebral compression fracture: pain is well controlled, not requiring any pain medications PT/OT consults, however, for time being should only be in bed or OOB in chair (3) Bradycardia: Patient had bradycardia to 40s with a nonspecific intraventricular conduction block. asymptomatic, HR in the 50-60's the rest of the admission d/w Dr. Ellis, cardiology, will discontinue Aricept 5mg daily as it is small dose and can cause bradycardia (4) Edema: resolved after one dose of Lasix 20mg IV echo shows EF of 50-55% edema resolved for 5 days, this does not represent heart failure (5) Hx of CABG: no chest pain during admission and denies any exertional angina for years two weeks prior to admission he was able to cut up firewood and load it in his trailer compliant with Plavix and Aspirin prior to admission last dose of both was 9/4 in the morning (6) CAD (coronary artery disease): hold Plavix and aspirin in anticipation of needing biopsy or possibly surgery last day he took aspirin and Plavix was 9/4 in the morning (7) Dementia: mild short term memory issues at baseline he lives with his at home hold Aricept as it is only 5mg daily and could cause the bradycardia plan to transfer to [facility] today Total Time Total Time Spent Total Time Spent (In Minutes): 35 minutes Total Time Includes: Examination of the Patient, Discharge Planning, Medication Reconciliation and Communication With Other Providers Discharge Plan Discharge Items Patient Disposition: Transfer Acute Care Hospital Reason For Visit: PARAVERTEBRAL MASS, PLEURISY Discharge Diagnosis: 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 CAD s/p CABG, remote history Mild dementia Condition: Fair Discharge Goals: Diagnostic testing and Therapeutic intervention Activity: Per 'Additional Instructions' section Lifting Comment: do not lift anything other than food Non-emergency contact: Primary Care Provider Call non-emergency contact if: you have any medication questions Follow-up/Referrals: Enrique Abdalla [Primary Care Provider] - Diet: Heart Healthy Addtl Provider Instructions: Follow up at [place] Prescriptions: Continued multivitamin Tablet 1 tab PO QAM RF: 0 levothyroxine 25 mcg Tablet 25 mcg PO QAM RF: 0 cyanocobalamin (vitamin B-12) [Vitamin B-12] 500 mcg Tablet 500 mcg PO QAM RF: 0 cholecalciferol (vitamin D3) [Vitamin D3] 1,000 unit Capsule 1,000 unit PO QAM RF: 0 rosuvastatin 10 mg Tablet 10 mg PO QPM RF: 0 omega 5-xtx-sik-fish oil [Fish Oil] 1,000 mg (120 mg-180 mg) Capsule 1 cap PO QAM RF: 0 Discontinued donepezil 5 mg Tablet 5 mg PO QAM RF: 0 clopidogrel 75 mg Tablet 75 mg PO QAM RF: 0 aspirin 81 mg Tablet,Delayed Release (Dr/Ec) 81 mg PO QPM RF: 0 Stand-Alone Forms: [facility] Discharge Orders: Discharge Order (Routine); Ordered 11/12/18 Ordered By: Dawood Rock Admission Data Admit Date/Time: 11/07/18 12:51 Attending Provider: Dawood Rock Admit Provider: Juancho Eckert Primary Care Provider: Enrique Abdalla Other Providers: Noe Adkins ; Lincoln Palacios ; Juancho Eckert ; Micheal Hickey Service: Medical
[2018-11-12] MEDS: ROSUVASTATIN CALCIUM 10 MG TAB PO SCH (20:13)
[2018-11-13] MEDS: LEVOTHYROXINE SODIUM 25 MCG TABLET PO SCH (06:19)
[2018-11-13] MEDS: ACETAMINOPHEN 325 MG TAB PO PRN (06:28)
[2018-11-16 02:36] LABS: Albumin 3.5 G/DL (3.8-4.8); Alpha 1 Globulin 0.3 G/DL (0.2-0.3); Alpha 2 Globulin 0.7 G/DL (0.5-0.9); Beta-1-Globulin 0.4 G/DL (0.4-0.6); Beta-2-Globulin 0.3 G/DL (0.2-0.5); Free Kappa 19.2 MG/L (3.3-19.4); Free Kappa/Lambda Ratio 0.98 (0.26-1.65); Free Lambda 19.6 MG/L (5.7-26.3); Gamma Globulin 1.1 G/DL (0.8-1.7); Kappa 303 mg/dL (176-443); Kappa Lambda Ratio 2.24 (1.29-2.55); Lambda 135 mg/dL (91-240); Monoclonal Protein Band 1 DNR G/DL (NOT DETECTED); Monoclonal Protein Band 2 DNR G/DL (NOT DETECTED); Monoclonal Protein Band 3 DNR G/DL (NOT DETECTED); Total Protein 6.2 G/DL (6.2-8.3)
== END 2018-11-13 07:45 | disposition short-term general hospital (02) | DRG 542 ==
LOC: ED 09:33 → 2S 12:51 → SUATTDRO 12:51 → 2E 13:08 → 2N 11-08 10:27 → 4W 11-10 11:36